=== PATIENT | male | born 1965 | race Caucasian/White ===

== ENCOUNTER 2016-02-26 08:04 | Emergency (ER) | payer OTHER ==
[2016-02-26] MEDS ORDERED: AUGMENTIN 875 MG TAB As Ordered ONE (08:48)
[2016-02-26] MEDS ORDERED: IBUPROFEN 800 MG TAB As Ordered ONE (08:48)
--- NOTE | 2016-02-26 09:01 | EDDOCDS ---
Physician Documentation [facility] Name: Samuel Adams Age: 51 yrs Sex: Male : 1965 Arrival Date: 02/26/2016 Time: 08:04 Bed I5 / M5 Private MD: Michelle Rachel DO Disposition: 02/26/16 08:44 Discharged to Home/Self Care. Impression: Acute serous otitis media, left ear, Acute pharyngitis. - Condition is Stable. - Discharge Instructions: Otitis Media, Adult, Pharyngitis, Gndw-rx-[id number]. - Prescriptions for Augmentin 875- 125 mg Oral Tablet - take 1 tablet by ORAL route every 12 hours for 10 days; 20 tablet. Ibuprofen 800 mg Oral Tablet - take 1 tablet by ORAL route every 8 hours As needed take with food; 30 tablet. - Work Release Form - 2 day, Medication Reconciliation, Local Pharmacy Hours form. - Follow up: Michelle Rachel; When: 1 - 2 days; Reason: Recheck today's complaints, Continuance of care. Follow up: Emergency Department; Reason: Worsening of conditions. - Problem is new. - Symptoms have improved. Historical: - Allergies: no known allergies; - Home Meds: 1. lisinopril 20 mg Oral tab 1 tab once daily 2. omeprazole 20 mg Oral cpDR 1 cap once daily 3. Synthroid 75 mcg Oral tab 1 tab once daily 4. Crestor Unknown Oral once daily 5. aspirin 81 mg Oral tab 1 tab once daily - PMHx: Hypertension; High Cholesterol; GERD; Antonio's Disease; - PSHx: left knee surgery times two; Hernia repair; Vasectomy; - Social history: Smoking status: Patient states was never smoker of tobacco. No barriers to communication noted, The patient speaks fluent Turkish, Speaks appropriately for age. - Family history: Not pertinent. - : The pt / caregiver states he / she is not on anticoagulants. Home medication list is obtained from the patient. - Exposure Risk Screening:: None identified. Vital Signs: 02/25 08:11 BP 116 / 82; Pulse 70; Resp 16; Temp 97.0; Pulse Ox 97% on R/A; Weight 77.11 kg / 170 mlb1 lbs (R); Height 5 ft. 6 in. (167.64 cm) (R); Pain 3/10; 08:11 Body Mass Index 27.44 (77.11 kg, 167.64 cm) mlb1 MDM: 08:35 Strep Screen, Nursing ordered. ef1 08:44 Amoxicillin-Clavulanate 875 mg 1 tabs PO once ordered. ef1 08:44 Ibuprofen 800 mg PO once ordered. ef1 08:46 GATS (NEGATIVE STREP SCREEN) Ordered. EDID 09:00 [facility] Payment Agreement was scanned into [employer] and attached to record. jp5 09:00 Financial registration complete. jp5 Administered Medications: 08:52 Drug: Amoxicillin-Clavulanate 1 tabs [amoxicillin 875 mg-potassium clavulanate 125 mg jc4 tablet (1 tabs)] Route: PO; 08:52 Drug: Ibuprofen 800 mg [ibuprofen 800 mg tablet (1 tabs)] Route: PO; jc4 Signatures: Dispatcher MedHo EDID Clarence Coker RN RN mlb1 Yoon Tran PA-C PAAlbaro ef1 Heidi Eddy RN RN jc4 Ariadne Flanagan jp5 The chart was reviewed and I authenticate all verbal orders and agree with the evaluation and treatment provided.Attachments: 09:00 [facility] Payment Agreement jp5 MTDD
--- NOTE | 2016-02-26 09:01 | EDDOCDS ---
Nurse's Notes [facility] Name: Samuel Adams Age: 51 yrs Sex: Male : 1965 Arrival Date: 02/26/2016 Time: 08:04 Bed I5 / M5 Private MD: Michelle Rachel DO Diagnosis: Acute serous otitis media, left ear;Acute pharyngitis Presentation: 02/25 08:07 Presenting complaint: Patient states: Persistent cough and fever for the past four days mlb1 left ear pain since last night. Adult Sepsis Screening: The patient does not have new or worsening altered mentation. Patient's respiratory rate is less than 22. Systolic blood pressure is greater than 100. Patient has a qSOFA score of 0- Negative Sepsis Screen. Suicide/Homicide risk assessment- the patient denies having any suicidal and/or homicidal ideations and does not present with any other emotional, behavioral or mental health complaints. Status: Patient is not a enterprise services manager or dependent. Transition of care: patient was not received from another setting of care. 08:07 Acuity: SOCRATES Level 4 mlb1 08:07 Method Of Arrival: Walkin/Carried/Asstd mlb1 Triage Assessment: 08:12 General: Appears in no apparent distress, Behavior is appropriate for age, cooperative. mlb1 Pain: Location: left ear Pain currently is 3 out of 10 on a pain scale. Pt Declines HIV testing. Respiratory: Reports cough that is non-productive, persistent. Historical: - Allergies: no known allergies; - Home Meds: 1. lisinopril 20 mg Oral tab 1 tab once daily 2. omeprazole 20 mg Oral cpDR 1 cap once daily 3. Synthroid 75 mcg Oral tab 1 tab once daily 4. Crestor Unknown Oral once daily 5. aspirin 81 mg Oral tab 1 tab once daily - PMHx: Hypertension; High Cholesterol; GERD; Antonio's Disease; - PSHx: left knee surgery times two; Hernia repair; Vasectomy; - Social history: Smoking status: Patient states was never smoker of tobacco. No barriers to communication noted, The patient speaks fluent Venezuelan, Speaks appropriately for age. - Family history: Not pertinent. - : The pt / caregiver states he / she is not on anticoagulants. Home medication list is obtained from the patient. - Exposure Risk Screening:: None identified. Screenin:33 Screening information is obtained from the patient. Fall risk: No risks identified. jc4 Assistance ADL's: requires no assistance with activities of daily living. Abuse/DV Screen: The patient / caregiver reports he/she is: not in a situation that causes fear, pain or injury. Nutritional screening: No deficits noted. Advance Directives: Currently, there is a health care proxy, Ibeth Woodson, . There is no active DNR order. There is a living will, but a copy is not available at this time. There is an active Power of Three Dimensional Art Instructor, Ibteh Woodson, . 08:59 home support is adequate. jc4 Assessment: 08:58 General: Appears uncomfortable. Neurological: Level of Consciousness is awake, alert, jc4 Oriented to person, place, time. EENT: Reports pain in left ear. Respiratory: Airway is patent Respiratory effort is even, unlabored, Respiratory pattern is regular, symmetrical. Derm: Skin is pink, warm & dry. Vital Signs: 08:11 BP 116 / 82; Pulse 70; Resp 16; Temp 97.0; Pulse Ox 97% on R/A; Weight 77.11 kg (R); mlb1 Height 5 ft. 6 in. (167.64 cm) (R); Pain 3/10; 08:11 Body Mass Index 27.44 (77.11 kg, 167.64 cm) [facility] Vitals: 08:11 Log In Time: February 26, 2016 at 08:02. b1 ED Course: 08:05 Patient visited by Faviola Orellana. mm15 08:05 Michelle Rachel is Private Physician. mm15 08:05 Patient moved to Waiting mm15 08:07 Patient visited by Clarence Coker, RN. mlb1 08:09 Triage Initiated mlb1 08:12 Patient visited by Clarence Coker, RN. mlb1 08:12 Heidi Eddy RN is Primary Nurse. mlb1 08:12 Patient moved to I5 / M5 mlb1 08:22 Yoon Tran PA-C is PHCP. ef1 08:22 Odilia Lozano MD is Attending Physician. ef1 08:22 Patient visited by Yoon Tran PA-C. ef1 08:33 The patient / caregiver is instructed regarding the plan of care and ED course. jc4 08:44 Patient visited by Yoon Tran PA-C. ef1 08:44 Michelle Rachel is Referral Physician. ef1 08:47 GATS (NEGATIVE STREP SCREEN) Sent. jc4 08:59 No IV's were initiated during this patient's visit. No procedures done that require jc4 assistance. 09:00 [facility] Payment Agreement was scanned into [employer] and attached to record. jp5 Administered Medications: 08:52 Drug: Amoxicillin-Clavulanate 1 tabs [amoxicillin 875 mg-potassium clavulanate 125 mg jc4 tablet (1 tabs)] Route: PO; 08:52 Drug: Ibuprofen 800 mg [ibuprofen 800 mg tablet (1 tabs)] Route: PO; jc4 Order Results: There are currently no results for this order. Outcome: 08:44 Discharge ordered by Provider. ef1 08:58 Discharge Assessment: Patient awake, alert and oriented x 3. No cognitive and/or jc4 functional deficits noted. Patient verbalized understanding of disposition instructions. patient administered narcotics - no. The following High Risk Discharge criteria are identified: None. Discharged to home ambulatory. Condition: stable. Discharge instructions given to patient, Instructed on discharge instructions, follow up and referral plans. medication usage, Demonstrated understanding of instructions, medications, Pt was receptive of discharge instructions/ teaching. Work note provided to patient. No special radiology studies were completed. Property :Personal belongings accompany Pt. 08:59 Patient left the ED. jc4 Signatures: Clarence Coker RN RN mlb1 Yoon Tran PA-C PA-C ef1 Heidi Eddy RN RN jc4 Faviola Orellana mm15 Ariadne Flanagan jp5 MTDD
--- NOTE | 2016-02-28 10:00 | EDDOCDS ---
Nurse's Notes [facility] Name: Samuel Adams Age: 51 yrs Sex: Male : 1965 Arrival Date: 02/26/2016 Time: 08:04 Bed I5 / M5 Private MD: Michelle Rachel DO Diagnosis: Acute serous otitis media, left ear;Acute pharyngitis Presentation: 02/25 08:07 Presenting complaint: Patient states: Persistent cough and fever for the past four days mlb1 left ear pain since last night. Adult Sepsis Screening: The patient does not have new or worsening altered mentation. Patient's respiratory rate is less than 22. Systolic blood pressure is greater than 100. Patient has a qSOFA score of 0- Negative Sepsis Screen. Suicide/Homicide risk assessment- the patient denies having any suicidal and/or homicidal ideations and does not present with any other emotional, behavioral or mental health complaints. Status: Patient is not a street light servicer helper or dependent. Transition of care: patient was not received from another setting of care. 08:07 Acuity: SOCRATES Level 4 mlb1 08:07 Method Of Arrival: Walkin/Carried/Asstd mlb1 Triage Assessment: 08:12 General: Appears in no apparent distress, Behavior is appropriate for age, cooperative. mlb1 Pain: Location: left ear Pain currently is 3 out of 10 on a pain scale. Pt Declines HIV testing. Respiratory: Reports cough that is non-productive, persistent. Historical: - Allergies: no known allergies; - Home Meds: 1. lisinopril 20 mg Oral tab 1 tab once daily 2. omeprazole 20 mg Oral cpDR 1 cap once daily 3. Synthroid 75 mcg Oral tab 1 tab once daily 4. Crestor Unknown Oral once daily 5. aspirin 81 mg Oral tab 1 tab once daily - PMHx: Hypertension; High Cholesterol; GERD; Antonio's Disease; - PSHx: left knee surgery times two; Hernia repair; Vasectomy; - Social history: Smoking status: Patient states was never smoker of tobacco. No barriers to communication noted, The patient speaks fluent Samoan, Speaks appropriately for age. - Family history: Not pertinent. - : The pt / caregiver states he / she is not on anticoagulants. Home medication list is obtained from the patient. - Exposure Risk Screening:: None identified. Screenin:33 Screening information is obtained from the patient. Fall risk: No risks identified. jc4 Assistance ADL's: requires no assistance with activities of daily living. Abuse/DV Screen: The patient / caregiver reports he/she is: not in a situation that causes fear, pain or injury. Nutritional screening: No deficits noted. Advance Directives: Currently, there is a health care proxy, Ibeth Woodson, . There is no active DNR order. There is a living will, but a copy is not available at this time. There is an active Power of Patient Navigator, Ibeth Woodson, . 08:59 home support is adequate. jc4 Assessment: 08:58 General: Appears uncomfortable. Neurological: Level of Consciousness is awake, alert, jc4 Oriented to person, place, time. EENT: Reports pain in left ear. Respiratory: Airway is patent Respiratory effort is even, unlabored, Respiratory pattern is regular, symmetrical. Derm: Skin is pink, warm & dry. Vital Signs: 08:11 BP 116 / 82; Pulse 70; Resp 16; Temp 97.0; Pulse Ox 97% on R/A; Weight 77.11 kg (R); mlb1 Height 5 ft. 6 in. (167.64 cm) (R); Pain 3/10; 08:11 Body Mass Index 27.44 (77.11 kg, 167.64 cm) [facility] Vitals: 08:11 Log In Time: February 26, 2016 at 08:02. b1 ED Course: 08:05 Patient visited by Faviola Orellana. mm15 08:05 Michelle Rachel is Private Physician. mm15 08:05 Patient moved to Waiting mm15 08:07 Patient visited by Clarence Coker, RN. mlb1 08:09 Triage Initiated mlb1 08:12 Patient visited by Clarence Coker, RN. mlb1 08:12 Heidi Eddy RN is Primary Nurse. mlb1 08:12 Patient moved to I5 / M5 mlb1 08:22 Yoon Tran PA-C is PHCP. ef1 08:22 Odilia Lozano MD is Attending Physician. ef1 08:22 Patient visited by Yoon Tran PA-C. ef1 08:33 The patient / caregiver is instructed regarding the plan of care and ED course. jc4 08:44 Patient visited by Yoon Tran PA-C. ef1 08:44 Michelle Rachel is Referral Physician. ef1 08:47 GATS (NEGATIVE STREP SCREEN) Sent. jc4 08:59 No IV's were initiated during this patient's visit. No procedures done that require jc4 assistance. 09:00 [facility] Payment Agreement was scanned into [employer] and attached to record. jp5 11:23 T-Sheet-- Draft Copy was scanned into [employer] and attached to record. se Administered Medications: 08:52 Drug: Amoxicillin-Clavulanate 1 tabs [amoxicillin 875 mg-potassium clavulanate 125 mg jc4 tablet (1 tabs)] Route: PO; 08:52 Drug: Ibuprofen 800 mg [ibuprofen 800 mg tablet (1 tabs)] Route: PO; jc4 Order Results: Lab Order: GATS (NEGATIVE STREP SCREEN); SPEC'M 02/26/16 08:39 Test: GATS CULTURE (NEG STREP SCR); Value: GATS RESULT NEGATIVE FOR STREP PYOGENES (GROUP A); Status: F Outcome: 08:44 Discharge ordered by Provider. ef1 08:58 Discharge Assessment: Patient awake, alert and oriented x 3. No cognitive and/or jc4 functional deficits noted. Patient verbalized understanding of disposition instructions. patient administered narcotics - no. The following High Risk Discharge criteria are identified: None. Discharged to home ambulatory. Condition: stable. Discharge instructions given to patient, Instructed on discharge instructions, follow up and referral plans. medication usage, Demonstrated understanding of instructions, medications, Pt was receptive of discharge instructions/ teaching. Work note provided to patient. No special radiology studies were completed. Property :Personal belongings accompany Pt. 08:59 Patient left the ED. jc4 Signatures: Clarence Coker RN RN mlb1 Yoon Tran PA-C PA-C ef1 Heidi Eddy RN RN jc4 Faviola Orellana mm15 Ariadne Flanagan 5 Odilia Vu Chart Complete MTDD
--- NOTE | 2016-02-28 10:00 | EDDOCDS ---
Physician Documentation [facility] Name: Samuel Adams Age: 51 yrs Sex: Male : 1965 Arrival Date: 02/26/2016 Time: 08:04 Bed I5 / M5 Private MD: Michelle Rachel DO Disposition: 02/26/16 08:44 Discharged to Home/Self Care. Impression: Acute serous otitis media, left ear, Acute pharyngitis. - Condition is Stable. - Discharge Instructions: Otitis Media, Adult, Pharyngitis, Vmoi-kb-Axlo. - Prescriptions for Augmentin 875- 125 mg Oral Tablet - take 1 tablet by ORAL route every 12 hours for 10 days; 20 tablet. Ibuprofen 800 mg Oral Tablet - take 1 tablet by ORAL route every 8 hours As needed take with food; 30 tablet. - Work Release Form - 2 day, Medication Reconciliation, Local Pharmacy Hours form. - Follow up: Michelle Rachel; When: 1 - 2 days; Reason: Recheck today's complaints, Continuance of care. Follow up: Emergency Department; Reason: Worsening of conditions. - Problem is new. - Symptoms have improved. Historical: - Allergies: no known allergies; - Home Meds: 1. lisinopril 20 mg Oral tab 1 tab once daily 2. omeprazole 20 mg Oral cpDR 1 cap once daily 3. Synthroid 75 mcg Oral tab 1 tab once daily 4. Crestor Unknown Oral once daily 5. aspirin 81 mg Oral tab 1 tab once daily - PMHx: Hypertension; High Cholesterol; GERD; Antonio's Disease; - PSHx: left knee surgery times two; Hernia repair; Vasectomy; - Social history: Smoking status: Patient states was never smoker of tobacco. No barriers to communication noted, The patient speaks fluent Greek, Speaks appropriately for age. - Family history: Not pertinent. - : The pt / caregiver states he / she is not on anticoagulants. Home medication list is obtained from the patient. - Exposure Risk Screening:: None identified. Vital Signs: 02/25 08:11 BP 116 / 82; Pulse 70; Resp 16; Temp 97.0; Pulse Ox 97% on R/A; Weight 77.11 kg / 170 mlb1 lbs (R); Height 5 ft. 6 in. (167.64 cm) (R); Pain 05/04; 08:11 Body Mass Index 27.44 (77.11 kg, 167.64 cm) mlb1 MDM: 08:35 Strep Screen, Nursing ordered. ef1 08:44 Amoxicillin-Clavulanate 875 mg 1 tabs PO once ordered. ef1 08:44 Ibuprofen 800 mg PO once ordered. ef1 08:46 GATS (NEGATIVE STREP SCREEN) Ordered. EDOK 09:00 [facility] Payment Agreement was scanned into [employer] and attached to record. [facility] 09:00 Financial registration complete. 5 11:23 T-Sheet-- Draft Copy was scanned into [employer] and attached to record. se Administered Medications: 08:52 Drug: Amoxicillin-Clavulanate 1 tabs [amoxicillin 875 mg-potassium clavulanate 125 mg jc4 tablet (1 tabs)] Route: PO; 08:52 Drug: Ibuprofen 800 mg [ibuprofen 800 mg tablet (1 tabs)] Route: PO; jc4 Signatures: Dispatcher [facility] Clarence Coker RN RN mlb1 Yoon Tran, PA-C PA-C ef1 Heidi Eddy RN RN jc4 Ariadne Flanagan jp5 Odilia Vu The chart was reviewed and I authenticate all verbal orders and agree with the evaluation and treatment provided.Attachments: :00 [facility] Payment Agreement jp5 :23 T-Sheet-- Draft Copy [facility] Chart Complete MTDD
--- NOTE | 2016-02-28 10:00 | EDDOCDS ---
Physician Documentation [facility] Name: Samuel Adams Age: 51 yrs Sex: Male : 1965 Arrival Date: 02/26/2016 Time: 08:04 Bed I5 / M5 Private MD: Michelle Rachel DO Disposition: 02/26/16 08:44 Discharged to Home/Self Care. Impression: Acute serous otitis media, left ear, Acute pharyngitis. - Condition is Stable. - Discharge Instructions: Otitis Media, Adult, Pharyngitis, Vomg-bj-Qmti. - Prescriptions for Augmentin 875- 125 mg Oral Tablet - take 1 tablet by ORAL route every 12 hours for 10 days; 20 tablet. Ibuprofen 800 mg Oral Tablet - take 1 tablet by ORAL route every 8 hours As needed take with food; 30 tablet. - Work Release Form - 2 day, Medication Reconciliation, Local Pharmacy Hours form. - Follow up: Michelle Rachel; When: 1 - 2 days; Reason: Recheck today's complaints, Continuance of care. Follow up: Emergency Department; Reason: Worsening of conditions. - Problem is new. - Symptoms have improved. Historical: - Allergies: no known allergies; - Home Meds: 1. lisinopril 20 mg Oral tab 1 tab once daily 2. omeprazole 20 mg Oral cpDR 1 cap once daily 3. Synthroid 75 mcg Oral tab 1 tab once daily 4. Crestor Unknown Oral once daily 5. aspirin 81 mg Oral tab 1 tab once daily - PMHx: Hypertension; High Cholesterol; GERD; Antonio's Disease; - PSHx: left knee surgery times two; Hernia repair; Vasectomy; - Social history: Smoking status: Patient states was never smoker of tobacco. No barriers to communication noted, The patient speaks fluent Romanian, Speaks appropriately for age. - Family history: Not pertinent. - : The pt / caregiver states he / she is not on anticoagulants. Home medication list is obtained from the patient. - Exposure Risk Screening:: None identified. Vital Signs: 02/25 08:11 BP 116 / 82; Pulse 70; Resp 16; Temp 97.0; Pulse Ox 97% on R/A; Weight 77.11 kg / 170 mlb1 lbs (R); Height 5 ft. 6 in. (167.64 cm) (R); Pain 05/04; 08:11 Body Mass Index 27.44 (77.11 kg, 167.64 cm) mlb1 MDM: 08:35 Strep Screen, Nursing ordered. ef1 08:44 Amoxicillin-Clavulanate 875 mg 1 tabs PO once ordered. ef1 08:44 Ibuprofen 800 mg PO once ordered. ef1 08:46 GATS (NEGATIVE STREP SCREEN) Ordered. EDMT 09:00 [facility] Payment Agreement was scanned into [employer] and attached to record. [facility] 09:00 Financial registration complete. 5 11:23 T-Sheet-- Draft Copy was scanned into [employer] and attached to record. se Administered Medications: 08:52 Drug: Amoxicillin-Clavulanate 1 tabs [amoxicillin 875 mg-potassium clavulanate 125 mg jc4 tablet (1 tabs)] Route: PO; 08:52 Drug: Ibuprofen 800 mg [ibuprofen 800 mg tablet (1 tabs)] Route: PO; jc4 Signatures: Dispatcher [facility] Clarence Coker RN RN mlb1 Yoon Tran, PA-C PA-C ef1 Heidi Eddy RN RN jc4 Ariadne Flanagan jp5 Odilia Vu The chart was reviewed and I authenticate all verbal orders and agree with the evaluation and treatment provided.Attachments: :00 [facility] Payment Agreement jp5 :23 T-Sheet-- Draft Copy [facility] Chart Complete MTDD
== END 2016-02-26 08:59 | disposition home or self-care (01) ==
LOC: M ED 08:04
DX: H66.92 Otitis media, unspecified, left ear (principal); J02.9 Acute pharyngitis, unspecified; I10 Essential (primary) hypertension; E78.00 Pure hypercholesterolemia, unspecified; K21.9 Gastro-esophageal reflux disease without esophagitis; E06.3 Autoimmune thyroiditis; Z79.82 Long term (current) use of aspirin; Z79.899 Other long term (current) drug therapy

== ENCOUNTER → 2016-02-28 | Outpatient (REF) | payer OTHER | END | disposition home or self-care (01) | LOC: M LAB REF 17:40 | PROVIDERS: ATTEND Physician Assistant | DX: Z53.8 Procedure and treatment not carried out for other reasons (principal); R05 Cough ==

== ENCOUNTER 2016-03-07 00:54 | Emergency (ER) | payer OTHER ==
[2016-03-07] MEDS ORDERED: methylPREDNISolone INJ 125 MG/2 ML VIAL (J2930) As Ordered ONE (01:49)
[2016-03-07] MEDS ORDERED: ALBUTEROL SULFATE 2.5 MG/0.5 ML INH NEB SOLN As Ordered ONE (01:53)
[2016-03-07 01:54] LABS: BASO % 0.3 % (0.0-1.0); EOS # 0.3 K/mm3 (0.0-0.50); EOS % 4.2 % (0.0-3.0); LARGE UNSTAINED CELL # 0.2 K/mm3 (0.0-0.4); LARGE UNSTAINED CELL % 2.9 % (0.0-4.0); LYMPH % 24.3 % (24.0-44.0); MEAN CORPUSCULAR HGB CONC 35.9 g/dl (32.0-36.5); MEAN CORPUSCULAR VOLUME 83.7 fl (80.0-96.0); MONO # 0.5 K/mm3 (0.0-0.8); MONO % 5.9 % (0.0-5.0); NEUTROPHILS % 62.4 % (36.0-66.0); PLATELET COUNT, AUTOMATED 260 k/mm3 (150-450); RED CELL DISTRIBUTION WIDTH 12.1 % (11.5-14.5); WHITE BLOOD COUNT 8.1 K/mm3 (4.0-10.0)
[2016-03-07 02:13] LABS: ANION GAP 6 MEQ/L (8-16); BLOOD UREA NITROGEN 18 MG/DL (7-18); CALCIUM LEVEL 8.6 MG/DL (8.5-10.1); CARBON DIOXIDE LEVEL 29 MEQ/L (21-32); CHLORIDE LEVEL 103 MEQ/L (98-107); CREATININE FOR GFR 1.33 MG/DL (0.70-1.30); GLOMERULAR FILTRATION RATE > 60.0 (>56); GLUCOSE, FASTING 106 MG/DL (70-105); POTASSIUM SERUM 4.1 MEQ/L (3.5-5.1); SODIUM LEVEL 138 MEQ/L (136-145)
[2016-03-07] MEDS ORDERED: ALBUTEROL 90 MCG/ACT 8GM HFA INHALER As Ordered ONE (02:22)
--- NOTE | 2016-03-07 02:31 | EDDOCDS ---
Nurse's Notes [facility] Name: Samuel Adams Age: 51 yrs Sex: Male : 1965 Arrival Date: 03/07/2016 Time: 00:54 Bed PD Private MD: Diagnosis: Acute upper respiratory infection, unspecified;Otitis media, unspecified, left ear;Cough Presentation: 03/07 01:04 Presenting complaint: Patient states: cough, persistent, non-productive; fever; sweats; af2 chills; earaches-left; sore throat; chest congestion, heavy. since 02/24/16. Adult Sepsis Screening: The patient does not have new or worsening altered mentation. Patient's respiratory rate is less than 22. Systolic blood pressure is greater than 100. Patient has a qSOFA score of 0- Negative Sepsis Screen. Suicide/Homicide risk assessment- the patient denies having any suicidal and/or homicidal ideations and does not present with any other emotional, behavioral or mental health complaints. Status: Patient is not a dining services director or dependent. Transition of care: patient was not received from another setting of care. 01:04 Acuity: SOCRATES Level 3 af2 01:04 Method Of Arrival: Walkin/Carried/Asstd af2 Triage Assessment: 01:06 General: Appears ill, Behavior is cooperative. Pain: Denies pain. HIV screening NA for af2 this visit Offered previously. Respiratory: Airway is patent Respiratory effort is even, unlabored, Reports cough that is non-productive, persistent. Derm: Skin is pale. Historical: - Allergies: No known drug Allergies; - Home Meds: 1. aspirin 81 mg Oral tab 1 tab once daily 2. Synthroid 75 mcg Oral tab 1 tab once daily 3. omeprazole 20 mg Oral cpDR 1 cap once daily 4. lisinopril 20 mg Oral tab 1 tab once daily 5. Crestor Oral once daily 6. Tussionex Pennkinetic ER 10-8 mg/5 mL Oral su12 5 mL every 12 hours 7. amoxicillin 500 mg Oral tab 1 tab every 12 hours - PMHx: GERD; Antonio's Disease; High Cholesterol; Hypertension; - PSHx: Hernia repair; Vasectomy; left knee surgery times two; - Social history: Smoking status: Patient states former smoker of tobacco. No barriers to communication noted, The patient speaks fluent Gabonese. - Family history: Not pertinent. - : The pt / caregiver states he / she is not on anticoagulants. Home medication list is obtained from the patient. - Exposure Risk Screening:: None identified. Screenin:57 Screening information is obtained from the patient. Fall risk: No risks identified. [facility] Assistance ADL's: requires no assistance with activities of daily living. Abuse/DV Screen: The patient / caregiver reports he/she is: not in a situation that causes fear, pain or injury. Nutritional screening: No deficits noted. Advance Directives: Currently, there is a health care proxy, ibeth rizvi, . There is no active DNR order. There is a living will, There is an active Power of Anger Control Counselor, ibeth rizvi, . home support is adequate. Assessment: :57 General: Appears in no apparent distress, comfortable, Behavior is appropriate for age, cjh cooperative. Pain: Denies pain. Neurological: Level of Consciousness is awake, alert, Oriented to person, place, time. Respiratory: Airway is patent Respiratory effort is even, unlabored, Respiratory pattern is regular, symmetrical, Breath sounds are coarse in left posterior lower lobe. Respiratory: Reports cough that is non-productive, persistent since 2 weeks. Derm: Skin is pink, warm & dry. 02:28 General: patient states feeling a little better, reviewed discharge instructions, [facility] denies further needs. Vital Signs: 01:01 BP 100 / 80 RA; Pulse 88; Resp 18 S; Temp 97.8(O); Pulse Ox 96% on R/A; Weight 79.38 kg af2 (R); Height 5 ft. 6 in. (167.64 cm) (R); Pain 0/10; 01:01 Body Mass Index 28.25 (79.38 kg, 167.64 cm) af2 Vitals: 01:01 Log In Time: March 07, 2016 at 00:51. af2 ED Course: 00:55 Patient visited by Stephania Avila. gjb 00:55 Patient moved to Waiting gjb 01:05 Triage Initiated af2 01:06 Patient visited by Adriana Guan RN. af2 01:07 Patient moved to PD af2 01:16 Daphne Alvarado PA-C is PHCP. dt4 01:16 Lorrie Beebe MD is Attending Physician. dt4 01:16 Patient visited by Daphne Alvarado PA-C. dt4 01:47 Basic Metabolic Profile Sent. [facility] 01:47 CBC with Diff Sent. [facility] 01:57 The patient / caregiver is instructed regarding the plan of care and ED course. Patient [facility] has correct armband on for positive identification. Bed in low position. Call light in reach. Cardiac monitoring not applicable on this patient. 01:57 Inserted saline lock: 20 gauge in left antecubital area and blood collected. The [facility] patient tolerated the procedure well. Labs drawn. (by ED staff). Sent per order to lab. 02:00 Patient visited by Ibeth Rizvi RN. [facility] 02:28 Discontinued lock intact, bleeding controlled, pressure dressing applied, No [facility] redness/swelling at site. No procedures done that require assistance. Administered Medications: 01:32 CANCELLED (Other Intervention Used): methylPREDNISolone Sodium Succinate 125 mg IM once dt4 01:55 Drug: Solu-MEDROL 125 mg [Solu-Medrol 500 mg intravenous solution (125 mg)] Route: IVP; [facility] Site: left antecubital; 02:30 Follow up: Response: No Adverse Reaction [facility] 01:56 Drug: Albuterol 2.5 mg [albuterol sulfate 2.5 mg/0.5 mL solution for nebulization (0.5 jh6 mL)] Route: Nebulizer; 02:29 Drug: Ventolin 2 puffs [Ventolin HFA 90 mcg/actuation aerosol inhaler (2 puffs)] Route: [facility] Inhalation; 02:30 Follow up: Response: Med's dispensed home [facility] RT: 01:56 Initial Med Neb Given as ordered Patient was instructed and evaluated on procedure jh6 Patient tolerated procedure well without adverse effect. Respiratory: Airway is patent Respiratory effort is even, unlabored, Respiratory pattern is regular symmetrical, Breath sounds are clear in right upper lobe, left upper lobe, right middle lobe, left lower lobe and right lower lobe. 02:04 Respiratory: Airway is patent Respiratory effort is even, unlabored, Respiratory jh6 pattern is regular symmetrical, Breath sounds are clear in right upper lobe, left upper lobe, right middle lobe, left lower lobe and right lower lobe. Order Results: Lab Order: CBC with Diff; SPEC'M 03/07/16 01:44 Test: WHITE BLOOD COUNT; Value: 8.1; Range: 4.0-10.0; Units: K/mm3; Status: F Test: RED BLOOD COUNT; Value: 5.27; Range: 4.30-6.10; Units: M/mm3; Status: F Test: HEMOGLOBIN; Value: 15.8; Range: 14.0-18.0; Units: g/dl; Status: F Test: HEMATOCRIT; Value: 44.1; Range: 42.0-52.0; Units: %; Status: F Test: MEAN CORPUSCULAR VOLUME; Value: 83.7; Range: 80.0-96.0; Units: fl; Status: F Test: MEAN CORPUSCULAR HEMOGLOBIN; Value: 30.0; Range: 27.0-33.0; Units: pg; Status: F Test: MEAN CORPUSCULAR HGB CONC; Value: 35.9; Range: 32.0-36.5; Units: g/dl; Status: F Test: RED CELL DISTRIBUTION WIDTH; Value: 12.1; Range: 11.5-14.5; Units: %; Status: F Test: PLATELET COUNT, AUTOMATED; Value: 260; Range: 150-450; Units: k/mm3; Status: F Test: NEUTROPHILS %; Value: 62.4; Range: 36.0-66.0; Units: %; Status: F Test: LYMPH %; Value: 24.3; Range: 24.0-44.0; Units: %; Status: F Test: MONO %; Value: 5.9; Range: 0.0-5.0; Abnormal: Above high normal; Units: %; Status: F Test: EOS %; Value: 4.2; Range: 0.0-3.0; Abnormal: Above high normal; Units: %; Status: F Test: BASO %; Value: 0.3; Range: 0.0-1.0; Units: %; Status: F Test: LARGE UNSTAINED CELL %; Value: 2.9; Range: 0.0-4.0; Units: %; Status: F Test: NEUTROPHILS #; Value: 5.0; Range: 1.8-7.7; Units: K/mm3; Status: F Test: LYMPH #; Value: 2.0; Range: 1.5-4.5; Units: K/mm3; Status: F Test: MONO #; Value: 0.5; Range: 0.0-0.8; Units: K/mm3; Status: F Test: EOS #; Value: 0.3; Range: 0.0-0.50; Units: K/mm3; Status: F Test: BASO #; Value: 0.0; Range: 0.0-0.2; Units: K/mm3; Status: F Test: LARGE UNSTAINED CELL #; Value: 0.2; Range: 0.0-0.4; Units: K/mm3; Status: F Lab Order: Basic Metabolic Profile; [facility] 03/07/16 01:44 Test: GLUCOSE, FASTING; Value: 106; Range: 70-105; Abnormal: Above high normal; Units: MG/DL; Status: F Test: BLOOD UREA NITROGEN; Value: 18; Range: 7-18; Units: MG/DL; Status: F Test: CREATININE FOR GFR; Value: 1.33; Range: 0.70-1.30; Abnormal: Above high normal; Units: MG/DL; Status: F Test: GLOMERULAR FILTRATION RATE; Value: > 60.0; Range: >56; Status: F Test: SODIUM LEVEL; Value: 138; Range: 136-145; Units: MEQ/L; Status: F Test: POTASSIUM SERUM; Value: 4.1; Range: 3.5-5.1; Units: MEQ/L; Status: F Test: CHLORIDE LEVEL; Value: 103; Range: 98-107; Units: MEQ/L; Status: F Test: CARBON DIOXIDE LEVEL; Value: 29; Range: 21-32; Units: MEQ/L; Status: F Test: ANION GAP; Value: 6; Range: 8-16; Abnormal: Below low normal; Units: MEQ/L; Status: F Test: CALCIUM LEVEL; Value: 8.6; Range: 8.5-10.1; Units: MG/DL; Status: F Test Note: ; Units are mL/min/1.73 m2 Chronic Kidney Disease Staging per NKF: Stage I & II GFR >=60 Normal to Mildly Decreased Stage III GFR 30-59 Moderately Decreased Stage IV GFR 15-29 Severely Decreased Stage V GFR <15 Very Little GFR Left ESRD GFR <15 on TEACHING FELLOW Outcome: 01:57 No special radiology studies were completed. Property :Personal belongings accompany Pt.[facility] 02:20 Discharge ordered by Provider. count includes the [facility] 02:28 Discharge Assessment: Patient awake, alert and oriented x 3. No cognitive and/or [facility] functional deficits noted. Patient verbalized understanding of disposition instructions. patient administered narcotics - no. The following High Risk Discharge criteria are identified: None. Discharged to home ambulatory. Condition: good Condition: stable Condition: improved. Discharge instructions given to patient, Instructed on discharge instructions, follow up and referral plans. medication usage, Demonstrated understanding of instructions, medications, Pt was receptive of discharge instructions/ teaching. Prescriptions given X 1, Work note provided to patient. 02:30 Patient left the ED. [facility] Signatures: James Aguilar jh6 Ibeth Rizvi,RN RN [facility] Daphne Alvarado, PAAnnabelC PA-C dt4 Adriana Guan,RN RN 2 Stephania Avila MTDVirginia
--- NOTE | 2016-03-07 02:31 | EDDOCDS ---
Physician Documentation [facility] Name: Samuel Adams Age: 51 yrs Sex: Male : 1965 Arrival Date: 03/07/2016 Time: 00:54 Bed PD Private MD: Disposition: 03/07/16 02:20 Discharged to Home/Self Care. Impression: Acute upper respiratory infection, unspecified, Otitis media, unspecified, left ear, Cough. - Condition is Stable. - Discharge Instructions: Upper Respiratory Infection, Adult, Cough, Adult. - Prescriptions for Levaquin 750 mg Oral Tablet - take 1 tablet by ORAL route once daily for 5 days; 5 tablet. - Medication Reconciliation, Work Release Form - 2 day, Local Pharmacy Hours form. - Follow up: Emergency Department; When: As needed; Reason: Worsening of conditions. Follow up: Private Physician; When: 2 - 3 days; Reason: Wound/Symptom Recheck, Recheck today's complaints, Continuance of care. - Problem is new. - Symptoms have improved. Historical: - Allergies: No known drug Allergies; - Home Meds: 1. aspirin 81 mg Oral tab 1 tab once daily 2. Synthroid 75 mcg Oral tab 1 tab once daily 3. omeprazole 20 mg Oral cpDR 1 cap once daily 4. lisinopril 20 mg Oral tab 1 tab once daily 5. Crestor Oral once daily 6. Tussionex Pennkinetic ER 10-8 mg/5 mL Oral su12 5 mL every 12 hours 7. amoxicillin 500 mg Oral tab 1 tab every 12 hours - PMHx: GERD; Antonio's Disease; High Cholesterol; Hypertension; - PSHx: Hernia repair; Vasectomy; left knee surgery times two; - Social history: Smoking status: Patient states former smoker of tobacco. No barriers to communication noted, The patient speaks fluent Urdu. - Family history: Not pertinent. - : The pt / caregiver states he / she is not on anticoagulants. Home medication list is obtained from the patient. - Exposure Risk Screening:: None identified. Vital Signs: 03/07 01:01 BP 100 / 80 RA; Pulse 88; Resp 18 S; Temp 97.8(O); Pulse Ox 96% on R/A; Weight 79.38 kg af2 / 175 lbs (R); Height 5 ft. 6 in. (167.64 cm) (R); Pain 0/10; 01:01 Body Mass Index 28.25 (79.38 kg, 167.64 cm) af2 MDM: 01:26 Albuterol 2.5 mg Nebulizer once ordered. dt4 01:26 Call Respiratory ordered. dt4 01:26 Chest, 2 View (pa\E\lat) Ordered. EDMS 01:31 Call Respiratory complete. cjh 01:33 IV Saline Lock ordered. dt4 01:33 Solu-MEDROL 125 mg IVP once ordered. dt4 01:33 CBC with Diff Ordered. EDMS 01:33 Basic Metabolic Profile Ordered. EDMS 02:20 Ventolin Inhaler 2 puffs Inhalation once; GIVE TO PT TO TAKE HOME, THANK YOU. ordered. dt4 Administered Medications: 01:32 CANCELLED (Other Intervention Used): methylPREDNISolone Sodium Succinate 125 mg IM once dt4 01:55 Drug: Solu-MEDROL 125 mg [Solu-Medrol 500 mg intravenous solution (125 mg)] Route: IVP; [facility] Site: left antecubital; 02:30 Follow up: Response: No Adverse Reaction [facility] 01:56 Drug: Albuterol 2.5 mg [albuterol sulfate 2.5 mg/0.5 mL solution for nebulization (0.5 jh6 mL)] Route: Nebulizer; 02:29 Drug: Ventolin 2 puffs [Ventolin HFA 90 mcg/actuation aerosol inhaler (2 puffs)] Route: [facility] Inhalation; 02:30 Follow up: Response: Med's dispensed home [facility] Signatures: Dispatcher [employer] Ibeth Woods RN RN [facility] Daphne Alvarado PA-C PAAnnabelC dt4 Adriana GuanRN RN af2 James Aguilar 6 The chart was reviewed and I authenticate all verbal orders and agree with the evaluation and treatment provided.Corrections: (The following items were deleted from the chart) 01:32 01:26 methylPREDNISolone Sodium Succinate 125 mg IM once ordered. dt4 dt4 MTDD
--- NOTE | 2016-03-07 08:07 | REP ---
Clinical: Cough . Comparison: 09/30/2014 . Technique: PA and lateral. Findings: The mediastinum and cardiac silhouette are normal. The lung paige are clear and without acute consolidation, effusion, or pneumothorax. The skeletal structures are intact and normal. Impression: 1. No acute cardiopulmonary process. Signed by Connor Díaz MD 03/07/2016 07:58 A
--- NOTE | 2016-03-09 03:31 | EDDOCDS ---
Physician Documentation [facility] Name: Samuel Adams Age: 51 yrs Sex: Male : 1965 Arrival Date: 03/07/2016 Time: 00:54 Bed PD Private MD: Disposition: 03/07/16 02:20 Discharged to Home/Self Care. Impression: Acute upper respiratory infection, unspecified, Otitis media, unspecified, left ear, Cough. - Condition is Stable. - Discharge Instructions: Upper Respiratory Infection, Adult, Cough, Adult. - Prescriptions for Levaquin 750 mg Oral Tablet - take 1 tablet by ORAL route once daily for 5 days; 5 tablet. - Medication Reconciliation, Work Release Form - 2 day, Local Pharmacy Hours form. - Follow up: Emergency Department; When: As needed; Reason: Worsening of conditions. Follow up: Private Physician; When: 2 - 3 days; Reason: Wound/Symptom Recheck, Recheck today's complaints, Continuance of care. - Problem is new. - Symptoms have improved. Historical: - Allergies: No known drug Allergies; - Home Meds: 1. aspirin 81 mg Oral tab 1 tab once daily 2. Synthroid 75 mcg Oral tab 1 tab once daily 3. omeprazole 20 mg Oral cpDR 1 cap once daily 4. lisinopril 20 mg Oral tab 1 tab once daily 5. Crestor Oral once daily 6. Tussionex Pennkinetic ER 10-8 mg/5 mL Oral su12 5 mL every 12 hours 7. amoxicillin 500 mg Oral tab 1 tab every 12 hours - PMHx: GERD; Antonio's Disease; High Cholesterol; Hypertension; - PSHx: Hernia repair; Vasectomy; left knee surgery times two; - Social history: Smoking status: Patient states former smoker of tobacco. No barriers to communication noted, The patient speaks fluent Hebrew. - Family history: Not pertinent. - : The pt / caregiver states he / she is not on anticoagulants. Home medication list is obtained from the patient. - Exposure Risk Screening:: None identified. Vital Signs: 03/07 01:01 BP 100 / 80 RA; Pulse 88; Resp 18 S; Temp 97.8(O); Pulse Ox 96% on R/A; Weight 79.38 kg af2 / 175 lbs (R); Height 5 ft. 6 in. (167.64 cm) (R); Pain 0/10; 01:01 Body Mass Index 28.25 (79.38 kg, 167.64 cm) af2 MDM: 01:26 Albuterol 2.5 mg Nebulizer once ordered. dt4 01:26 Call Respiratory ordered. dt4 01:26 Chest, 2 View (pa\E\lat) Ordered. EDMS 01:31 Call Respiratory complete. cjh 01:33 IV Saline Lock ordered. dt4 01:33 Solu-MEDROL 125 mg IVP once ordered. dt4 01:33 CBC with Diff Ordered. EDMS 01:33 Basic Metabolic Profile Ordered. EDMS 02:20 Ventolin Inhaler 2 puffs Inhalation once; GIVE TO PT TO TAKE HOME, THANK YOU. ordered. dt4 13:41 T-Sheet-- Draft Copy was scanned into [employer] and attached to record. gb Administered Medications: 01:32 CANCELLED (Other Intervention Used): methylPREDNISolone Sodium Succinate 125 mg IM once dt4 01:55 Drug: Solu-MEDROL 125 mg [Solu-Medrol 500 mg intravenous solution (125 mg)] Route: IVP; [facility] Site: left antecubital; 02:30 Follow up: Response: No Adverse Reaction [facility] 01:56 Drug: Albuterol 2.5 mg [albuterol sulfate 2.5 mg/0.5 mL solution for nebulization (0.5 jh6 mL)] Route: Nebulizer; 02:29 Drug: Ventolin 2 puffs [Ventolin HFA 90 mcg/actuation aerosol inhaler (2 puffs)] Route: [facility] Inhalation; 02:30 Follow up: Response: Med's dispensed home [facility] Signatures: Dispatcher [employer] EDMO Martina Henriquez, Reg Reg gb Ibeth Woodson RN RN [facility] Daphne Alvarado, PA-C PA-C dt4 Adriana Guan RN RN 2 James Aguilar 6 The chart was reviewed and I authenticate all verbal orders and agree with the evaluation and treatment provided.Corrections: (The following items were deleted from the chart) 01:32 01:26 methylPREDNISolone Sodium Succinate 125 mg IM once ordered. dt4 dt4 Attachments: 13:41 T-Sheet-- Draft Copy gb Chart Complete MTDD
--- NOTE | 2016-03-09 03:31 | EDDOCDS ---
Physician Documentation [facility] Name: Samuel Adams Age: 51 yrs Sex: Male : 1965 Arrival Date: 03/07/2016 Time: 00:54 Bed PD Private MD: Disposition: 03/07/16 02:20 Discharged to Home/Self Care. Impression: Acute upper respiratory infection, unspecified, Otitis media, unspecified, left ear, Cough. - Condition is Stable. - Discharge Instructions: Upper Respiratory Infection, Adult, Cough, Adult. - Prescriptions for Levaquin 750 mg Oral Tablet - take 1 tablet by ORAL route once daily for 5 days; 5 tablet. - Medication Reconciliation, Work Release Form - 2 day, Local Pharmacy Hours form. - Follow up: Emergency Department; When: As needed; Reason: Worsening of conditions. Follow up: Private Physician; When: 2 - 3 days; Reason: Wound/Symptom Recheck, Recheck today's complaints, Continuance of care. - Problem is new. - Symptoms have improved. Historical: - Allergies: No known drug Allergies; - Home Meds: 1. aspirin 81 mg Oral tab 1 tab once daily 2. Synthroid 75 mcg Oral tab 1 tab once daily 3. omeprazole 20 mg Oral cpDR 1 cap once daily 4. lisinopril 20 mg Oral tab 1 tab once daily 5. Crestor Oral once daily 6. Tussionex Pennkinetic ER 10-8 mg/5 mL Oral su12 5 mL every 12 hours 7. amoxicillin 500 mg Oral tab 1 tab every 12 hours - PMHx: GERD; Antonio's Disease; High Cholesterol; Hypertension; - PSHx: Hernia repair; Vasectomy; left knee surgery times two; - Social history: Smoking status: Patient states former smoker of tobacco. No barriers to communication noted, The patient speaks fluent Turkish. - Family history: Not pertinent. - : The pt / caregiver states he / she is not on anticoagulants. Home medication list is obtained from the patient. - Exposure Risk Screening:: None identified. Vital Signs: 03/07 01:01 BP 100 / 80 RA; Pulse 88; Resp 18 S; Temp 97.8(O); Pulse Ox 96% on R/A; Weight 79.38 kg af2 / 175 lbs (R); Height 5 ft. 6 in. (167.64 cm) (R); Pain 0/10; 01:01 Body Mass Index 28.25 (79.38 kg, 167.64 cm) af2 MDM: 01:26 Albuterol 2.5 mg Nebulizer once ordered. dt4 01:26 Call Respiratory ordered. dt4 01:26 Chest, 2 View (pa\E\lat) Ordered. EDMS 01:31 Call Respiratory complete. cjh 01:33 IV Saline Lock ordered. dt4 01:33 Solu-MEDROL 125 mg IVP once ordered. dt4 01:33 CBC with Diff Ordered. EDMS 01:33 Basic Metabolic Profile Ordered. EDMS 02:20 Ventolin Inhaler 2 puffs Inhalation once; GIVE TO PT TO TAKE HOME, THANK YOU. ordered. dt4 13:41 T-Sheet-- Draft Copy was scanned into [employer] and attached to record. gb Administered Medications: 01:32 CANCELLED (Other Intervention Used): methylPREDNISolone Sodium Succinate 125 mg IM once dt4 01:55 Drug: Solu-MEDROL 125 mg [Solu-Medrol 500 mg intravenous solution (125 mg)] Route: IVP; [facility] Site: left antecubital; 02:30 Follow up: Response: No Adverse Reaction [facility] 01:56 Drug: Albuterol 2.5 mg [albuterol sulfate 2.5 mg/0.5 mL solution for nebulization (0.5 jh6 mL)] Route: Nebulizer; 02:29 Drug: Ventolin 2 puffs [Ventolin HFA 90 mcg/actuation aerosol inhaler (2 puffs)] Route: [facility] Inhalation; 02:30 Follow up: Response: Med's dispensed home [facility] Signatures: Dispatcher [employer] EDOH Martina Henriquez, Reg Reg gb Ibeth Woodson RN RN [facility] Daphne Alvarado, PA-C PA-C dt4 Adriana Guan RN RN 2 James Aguilar 6 The chart was reviewed and I authenticate all verbal orders and agree with the evaluation and treatment provided.Corrections: (The following items were deleted from the chart) 01:32 01:26 methylPREDNISolone Sodium Succinate 125 mg IM once ordered. dt4 dt4 Attachments: 13:41 T-Sheet-- Draft Copy gb Chart Complete MTDD
--- NOTE | 2016-03-09 03:31 | EDDOCDS ---
Nurse's Notes [facility] Name: Samuel Adams Age: 51 yrs Sex: Male : 1965 Arrival Date: 03/07/2016 Time: 00:54 Bed PD Private MD: Diagnosis: Acute upper respiratory infection, unspecified;Otitis media, unspecified, left ear;Cough Presentation: 03/07 01:04 Presenting complaint: Patient states: cough, persistent, non-productive; fever; sweats; af2 chills; earaches-left; sore throat; chest congestion, heavy. since 02/24/16. Adult Sepsis Screening: The patient does not have new or worsening altered mentation. Patient's respiratory rate is less than 22. Systolic blood pressure is greater than 100. Patient has a qSOFA score of 0- Negative Sepsis Screen. Suicide/Homicide risk assessment- the patient denies having any suicidal and/or homicidal ideations and does not present with any other emotional, behavioral or mental health complaints. Status: Patient is not a dental service chief or dependent. Transition of care: patient was not received from another setting of care. 01:04 Acuity: SOCRATES Level 3 af2 01:04 Method Of Arrival: Walkin/Carried/Asstd af2 Triage Assessment: 01:06 General: Appears ill, Behavior is cooperative. Pain: Denies pain. HIV screening NA for af2 this visit Offered previously. Respiratory: Airway is patent Respiratory effort is even, unlabored, Reports cough that is non-productive, persistent. Derm: Skin is pale. Historical: - Allergies: No known drug Allergies; - Home Meds: 1. aspirin 81 mg Oral tab 1 tab once daily 2. Synthroid 75 mcg Oral tab 1 tab once daily 3. omeprazole 20 mg Oral cpDR 1 cap once daily 4. lisinopril 20 mg Oral tab 1 tab once daily 5. Crestor Oral once daily 6. Tussionex Pennkinetic ER 10-8 mg/5 mL Oral su12 5 mL every 12 hours 7. amoxicillin 500 mg Oral tab 1 tab every 12 hours - PMHx: GERD; Antonio's Disease; High Cholesterol; Hypertension; - PSHx: Hernia repair; Vasectomy; left knee surgery times two; - Social history: Smoking status: Patient states former smoker of tobacco. No barriers to communication noted, The patient speaks fluent Hungarian. - Family history: Not pertinent. - : The pt / caregiver states he / she is not on anticoagulants. Home medication list is obtained from the patient. - Exposure Risk Screening:: None identified. Screenin:57 Screening information is obtained from the patient. Fall risk: No risks identified. [facility] Assistance ADL's: requires no assistance with activities of daily living. Abuse/DV Screen: The patient / caregiver reports he/she is: not in a situation that causes fear, pain or injury. Nutritional screening: No deficits noted. Advance Directives: Currently, there is a health care proxy, ibeth rizvi, . There is no active DNR order. There is a living will, There is an active Power of District Court Judge, ibeth rizvi, . home support is adequate. Assessment: :57 General: Appears in no apparent distress, comfortable, Behavior is appropriate for age, cjh cooperative. Pain: Denies pain. Neurological: Level of Consciousness is awake, alert, Oriented to person, place, time. Respiratory: Airway is patent Respiratory effort is even, unlabored, Respiratory pattern is regular, symmetrical, Breath sounds are coarse in left posterior lower lobe. Respiratory: Reports cough that is non-productive, persistent since 2 weeks. Derm: Skin is pink, warm & dry. 02:28 General: patient states feeling a little better, reviewed discharge instructions, [facility] denies further needs. Vital Signs: 01:01 BP 100 / 80 RA; Pulse 88; Resp 18 S; Temp 97.8(O); Pulse Ox 96% on R/A; Weight 79.38 kg af2 (R); Height 5 ft. 6 in. (167.64 cm) (R); Pain 0/10; 01:01 Body Mass Index 28.25 (79.38 kg, 167.64 cm) af2 Vitals: 01:01 Log In Time: March 07, 2016 at 00:51. af2 ED Course: 00:55 Patient visited by Stephania Avila. gjb 00:55 Patient moved to Waiting gjb 01:05 Triage Initiated af2 01:06 Patient visited by Adriana Guan RN. af2 01:07 Patient moved to PD af2 01:16 Daphne Alvarado PA-C is PHCP. dt4 01:16 Lorrie Beebe MD is Attending Physician. dt4 01:16 Patient visited by Daphne Alvarado PA-C. dt4 01:47 Basic Metabolic Profile Sent. cjh 01:47 CBC with Diff Sent. [facility] 01:57 The patient / caregiver is instructed regarding the plan of care and ED course. Patient [facility] has correct armband on for positive identification. Bed in low position. Call light in reach. Cardiac monitoring not applicable on this patient. 01:57 Inserted saline lock: 20 gauge in left antecubital area and blood collected. The [facility] patient tolerated the procedure well. Labs drawn. (by ED staff). Sent per order to lab. 02:00 Patient visited by Ibeth Rizvi RN. [facility] 02:28 Discontinued lock intact, bleeding controlled, pressure dressing applied, No [facility] redness/swelling at site. No procedures done that require assistance. 08:49 Chest, 2 View (pa\E\lat) Returned. EDMS 13:41 T-Sheet-- Draft Copy was scanned into [employer] and attached to record. gb Administered Medications: 01:32 CANCELLED (Other Intervention Used): methylPREDNISolone Sodium Succinate 125 mg IM once dt4 01:55 Drug: Solu-MEDROL 125 mg [Solu-Medrol 500 mg intravenous solution (125 mg)] Route: IVP; [facility] Site: left antecubital; 02:30 Follow up: Response: No Adverse Reaction [facility] 01:56 Drug: Albuterol 2.5 mg [albuterol sulfate 2.5 mg/0.5 mL solution for nebulization (0.5 jh6 mL)] Route: Nebulizer; 02:29 Drug: Ventolin 2 puffs [Ventolin HFA 90 mcg/actuation aerosol inhaler (2 puffs)] Route: [facility] Inhalation; 02:30 Follow up: Response: Med's dispensed home [facility] RT: 01:56 Initial Med Neb Given as ordered Patient was instructed and evaluated on procedure jh6 Patient tolerated procedure well without adverse effect. Respiratory: Airway is patent Respiratory effort is even, unlabored, Respiratory pattern is regular symmetrical, Breath sounds are clear in right upper lobe, left upper lobe, right middle lobe, left lower lobe and right lower lobe. 02:04 Respiratory: Airway is patent Respiratory effort is even, unlabored, Respiratory jh6 pattern is regular symmetrical, Breath sounds are clear in right upper lobe, left upper lobe, right middle lobe, left lower lobe and right lower lobe. Order Results: Lab Order: CBC with Diff; SPEC'M 03/07/16 01:44 Test: WHITE BLOOD COUNT; Value: 8.1; Range: 4.0-10.0; Units: K/mm3; Status: F Test: RED BLOOD COUNT; Value: 5.27; Range: 4.30-6.10; Units: M/mm3; Status: F Test: HEMOGLOBIN; Value: 15.8; Range: 14.0-18.0; Units: g/dl; Status: F Test: HEMATOCRIT; Value: 44.1; Range: 42.0-52.0; Units: %; Status: F Test: MEAN CORPUSCULAR VOLUME; Value: 83.7; Range: 80.0-96.0; Units: fl; Status: F Test: MEAN CORPUSCULAR HEMOGLOBIN; Value: 30.0; Range: 27.0-33.0; Units: pg; Status: F Test: MEAN CORPUSCULAR HGB CONC; Value: 35.9; Range: 32.0-36.5; Units: g/dl; Status: F Test: RED CELL DISTRIBUTION WIDTH; Value: 12.1; Range: 11.5-14.5; Units: %; Status: F Test: PLATELET COUNT, AUTOMATED; Value: 260; Range: 150-450; Units: k/mm3; Status: F Test: NEUTROPHILS %; Value: 62.4; Range: 36.0-66.0; Units: %; Status: F Test: LYMPH %; Value: 24.3; Range: 24.0-44.0; Units: %; Status: F Test: MONO %; Value: 5.9; Range: 0.0-5.0; Abnormal: Above high normal; Units: %; Status: F Test: EOS %; Value: 4.2; Range: 0.0-3.0; Abnormal: Above high normal; Units: %; Status: F Test: BASO %; Value: 0.3; Range: 0.0-1.0; Units: %; Status: F Test: LARGE UNSTAINED CELL %; Value: 2.9; Range: 0.0-4.0; Units: %; Status: F Test: NEUTROPHILS #; Value: 5.0; Range: 1.8-7.7; Units: K/mm3; Status: F Test: LYMPH #; Value: 2.0; Range: 1.5-4.5; Units: K/mm3; Status: F Test: MONO #; Value: 0.5; Range: 0.0-0.8; Units: K/mm3; Status: F Test: EOS #; Value: 0.3; Range: 0.0-0.50; Units: K/mm3; Status: F Test: BASO #; Value: 0.0; Range: 0.0-0.2; Units: K/mm3; Status: F Test: LARGE UNSTAINED CELL #; Value: 0.2; Range: 0.0-0.4; Units: K/mm3; Status: F Lab Order: Basic Metabolic Profile; SPEC'M 03/07/16 01:44 Test: GLUCOSE, FASTING; Value: 106; Range: 70-105; Abnormal: Above high normal; Units: MG/DL; Status: F Test: BLOOD UREA NITROGEN; Value: 18; Range: 7-18; Units: MG/DL; Status: F Test: CREATININE FOR GFR; Value: 1.33; Range: 0.70-1.30; Abnormal: Above high normal; Units: MG/DL; Status: F Test: GLOMERULAR FILTRATION RATE; Value: > 60.0; Range: >56; Status: F Test: SODIUM LEVEL; Value: 138; Range: 136-145; Units: MEQ/L; Status: F Test: POTASSIUM SERUM; Value: 4.1; Range: 3.5-5.1; Units: MEQ/L; Status: F Test: CHLORIDE LEVEL; Value: 103; Range: 98-107; Units: MEQ/L; Status: F Test: CARBON DIOXIDE LEVEL; Value: 29; Range: 21-32; Units: MEQ/L; Status: F Test: ANION GAP; Value: 6; Range: 8-16; Abnormal: Below low normal; Units: MEQ/L; Status: F Test: CALCIUM LEVEL; Value: 8.6; Range: 8.5-10.1; Units: MG/DL; Status: F Test Note: ; Units are mL/min/1.73 m2 Chronic Kidney Disease Staging per NKF: Stage I & II GFR >=60 Normal to Mildly Decreased Stage III GFR 30-59 Moderately Decreased Stage IV GFR 15-29 Severely Decreased Stage V GFR <15 Very Little GFR Left ESRD GFR <15 on [employer] Radiology Order: Chest, 2 View (pa\E\lat) Test: Chest, 2 View (pa\E\lat) REASON FOR EXAMINATION: Cough; Clinical: Cough .; ; Comparison: 09/30/2014 .; ; Technique: PA and lateral.; ; Findings:; The mediastinum and cardiac silhouette are normal. The lung paige are clear and; without acute consolidation, effusion, or pneumothorax. The skeletal structures; are intact and normal.; ; Impression:; 1. No acute cardiopulmonary process.; ; ; Signed by; Connor Díaz MD 03/07/2016 07:58 A; Outcome: 01:57 No special radiology studies were completed. Property :Personal belongings accompany Pt.[facility] 02:20 Discharge ordered by Provider. dt4 02:28 Discharge Assessment: Patient awake, alert and oriented x 3. No cognitive and/or [facility] functional deficits noted. Patient verbalized understanding of disposition instructions. patient administered narcotics - no. The following High Risk Discharge criteria are identified: None. Discharged to home ambulatory. Condition: good Condition: stable Condition: improved. Discharge instructions given to patient, Instructed on discharge instructions, follow up and referral plans. medication usage, Demonstrated understanding of instructions, medications, Pt was receptive of discharge instructions/ teaching. Prescriptions given X 1, Work note provided to patient. 02:30 Patient left the ED. [facility] Signatures: Dispatcher [employer] EDMS Martina Henriquez, Reg Reg James Galeas [email or web address] Ibeth Rizvi,RN RN [facility] Daphne Alvarado, PA-C PA-C dt4 Adriana Guan,RN RN Stephania Heredia Chart Complete MTDD
== END 2016-03-07 02:30 | disposition home or self-care (01) ==
LOC: M ED 00:54
DX: J06.9 Acute upper respiratory infection, unspecified (principal); H66.92 Otitis media, unspecified, left ear; K21.9 Gastro-esophageal reflux disease without esophagitis; E78.00 Pure hypercholesterolemia, unspecified; I10 Essential (primary) hypertension; E06.3 Autoimmune thyroiditis; Z87.891 Personal history of nicotine dependence; Z79.82 Long term (current) use of aspirin; Z79.899 Other long term (current) drug therapy
CPT/HCPCS: 36415; 71020; 80048; 85025; 94640; 96374; 99284; J2930

== ENCOUNTER → 2016-05-11 | Outpatient (CLI) | payer OTHER ==
[2016-05-11 08:14] LABS: BASO % 0.3 % (0.0-1.0); EOS # 0.1 K/mm3 (0.0-0.50); EOS % 2.5 % (0.0-3.0); LYMPH # 2.2 K/mm3 (1.5-4.5); LYMPH % 39.3 % (24.0-44.0); MEAN CORPUSCULAR HEMOGLOBIN 30.6 pg (27.0-33.0); MEAN CORPUSCULAR HGB CONC 35.3 g/dl (32.0-36.5); MEAN CORPUSCULAR VOLUME 86.6 fl (80.0-96.0); MONO # 0.3 K/mm3 (0.0-0.8); MONO % 5.8 % (0.0-5.0); NEUTROPHILS # 2.6 K/mm3 (1.8-7.7); NEUTROPHILS % 49.6 % (36.0-66.0); RED CELL DISTRIBUTION WIDTH 12.6 % (11.5-14.5); WHITE BLOOD COUNT 5.3 K/mm3 (4.0-10.0)
[2016-05-11 08:20] LABS: ALBUMIN 4.2 GM/DL (3.2-5.2); ALKALINE PHOSPHATASE 50 U/L (45-117); ALT/SGPT 76 U/L (12-78); ANION GAP 10 MEQ/L (8-16); AST/SGOT 36 U/L (15-37); BILIRUBIN,TOTAL 0.6 MG/DL (0.2-1.0); BLOOD UREA NITROGEN 18 MG/DL (7-18); CALCIUM LEVEL 8.5 MG/DL (8.5-10.1); CARBON DIOXIDE LEVEL 27 MEQ/L (21-32); CHLORIDE LEVEL 105 MEQ/L (98-107); CHOLESTEROL LEVEL 189 MG/DL (<200); CREATININE FOR GFR 1.16 MG/DL (0.70-1.30); FREE T4 1.09 NG/DL (0.76-1.46); GLOMERULAR FILTRATION RATE > 60.0 (>56); GLUCOSE, FASTING 98 MG/DL (70-105); POTASSIUM SERUM 4.5 MEQ/L (3.5-5.1); SODIUM LEVEL 142 MEQ/L (136-145); TOTAL PROTEIN 7.2 GM/DL (6.4-8.2); TRIGLYCERIDES LEVEL 124 MG/DL (<150)
== END ==
LOC: M LAB 07:12
PROVIDERS: ATTEND Family Medicine
DX: E78.2 Mixed hyperlipidemia (principal); Z12.5 Encounter for screening for malignant neoplasm of prostate; Z13.29 Encounter for screening for other suspected endocrine disorder; Z13.0 Encounter for screening for diseases of the blood and blood-forming organs and certain disorders involving the immune mechanism
CPT/HCPCS: 36415; 80053; 80061; 84439; 84443; 85027; G0103

== ENCOUNTER → 2016-10-08 | Outpatient (CLI) | payer OTHER ==
[2016-10-08 06:55] LABS: BASO % 0.3 % (0.0-1.0); EOS # 0.2 K/mm3 (0.0-0.50); EOS % 2.8 % (0.0-3.0); LARGE UNSTAINED CELL # 0.1 K/mm3 (0.0-0.4); LARGE UNSTAINED CELL % 2.6 % (0.0-4.0); LYMPH # 2.6 K/mm3 (1.5-4.5); LYMPH % 45.2 % (24.0-44.0); MEAN CORPUSCULAR HEMOGLOBIN 30.2 pg (27.0-33.0); MEAN CORPUSCULAR HGB CONC 34.6 g/dl (32.0-36.5); MEAN CORPUSCULAR VOLUME 87.2 fl (80.0-96.0); MONO # 0.4 K/mm3 (0.0-0.8); MONO % 6.5 % (0.0-5.0); NEUTROPHILS # 2.4 K/mm3 (1.8-7.7); NEUTROPHILS % 42.6 % (36.0-66.0); PLATELET COUNT, AUTOMATED 182 k/mm3 (150-450); RED CELL DISTRIBUTION WIDTH 12.6 % (11.5-14.5); WHITE BLOOD COUNT 5.5 K/mm3 (4.0-10.0)
[2016-10-08 07:31] LABS: ALBUMIN 4.2 GM/DL (3.2-5.2); ALBUMIN/GLOBULIN RATIO 1.45 (1.00-1.93); ALKALINE PHOSPHATASE 49 U/L (45-117); ALT/SGPT 53 U/L (12-78); ANION GAP 6 MEQ/L (8-16); AST/SGOT 23 U/L (15-37); BILIRUBIN,TOTAL 0.5 MG/DL (0.2-1.0); BLOOD UREA NITROGEN 21 MG/DL (7-18); CALCIUM LEVEL 8.7 MG/DL (8.5-10.1); CARBON DIOXIDE LEVEL 29 MEQ/L (21-32); CHLORIDE LEVEL 106 MEQ/L (98-107); CHOLESTEROL LEVEL 147 MG/DL (<200); CREATININE FOR GFR 1.27 MG/DL (0.70-1.30); FREE T4 1.02 NG/DL (0.76-1.46); GLOMERULAR FILTRATION RATE > 60.0 (>56); GLUCOSE, FASTING 104 MG/DL (70-105); POTASSIUM SERUM 4.4 MEQ/L (3.5-5.1); SODIUM LEVEL 141 MEQ/L (136-145); TOTAL PROTEIN 7.1 GM/DL (6.4-8.2); TRIGLYCERIDES LEVEL 67 MG/DL (<150)
== END ==
LOC: M LAB 06:24
PROVIDERS: ATTEND Family Medicine
DX: E78.2 Mixed hyperlipidemia (principal); E06.3 Autoimmune thyroiditis; I10 Essential (primary) hypertension

== ENCOUNTER 2017-04-28 13:35 | Emergency (ER) | payer OTHER ==
[2017-04-28] MEDS: ADACEL/BOOSTRIX VACCINE (DIPHTH/PERTUSS/ACELL/TETANUS)0.5ML SYR (90715) IM (13:48)
== END 2017-04-28 14:09 | disposition home or self-care (01) ==
LOC: M ED 13:35
DX: S61.213A Laceration without foreign body of left middle finger without damage to nail, initial encounter (principal); W45.0XXA Nail entering through skin, initial encounter; Y92.099 Unspecified place in other non-institutional residence as the place of occurrence of the external cause; Y93.9 Activity, unspecified; Z79.899 Other long term (current) drug therapy
CPT/HCPCS: 90715

== ENCOUNTER → 2017-07-15 | Outpatient (CLI) | payer OTHER ==
[2017-07-15 04:35] LABS: ALBUMIN 4.5 GM/DL (3.2-5.2); ALBUMIN/GLOBULIN RATIO 1.41 (1.00-1.93); ALKALINE PHOSPHATASE 55 U/L (45-117); ALT/SGPT 63 U/L (12-78); ANION GAP 7 MEQ/L (8-16); AST/SGOT 28 U/L (7-37); BILIRUBIN,TOTAL 0.5 MG/DL (0.2-1.0); BLOOD UREA NITROGEN 31 MG/DL (7-18); CALCIUM LEVEL 9.1 MG/DL (8.5-10.1); CARBON DIOXIDE LEVEL 29 MEQ/L (21-32); CHLORIDE LEVEL 105 MEQ/L (98-107); CHOLESTEROL LEVEL 170 MG/DL (<200); CHOLESTEROL RISK RATIO 3.035 (<5); CREATININE FOR GFR 1.31 MG/DL (0.70-1.30); GLOMERULAR FILTRATION RATE > 60.0 (>56); GLUCOSE, FASTING 104 MG/DL (70-100); HDL CHOLESTEROL 56 MG/DL (>40); LDL CHOLESTEROL 88.2 MG/DL (<100); NON-HDL-C 114 MG/DL; POTASSIUM SERUM 4.4 MEQ/L (3.5-5.1); SODIUM LEVEL 141 MEQ/L (136-145); TOTAL PROTEIN 7.7 GM/DL (6.4-8.2); TRIGLYCERIDES LEVEL 129 MG/DL (<150)
== END ==
LOC: M LAB 02:45
DX: E78.2 Mixed hyperlipidemia (principal); E06.3 Autoimmune thyroiditis
CPT/HCPCS: 84443

== ENCOUNTER 2017-10-19 17:18 | Emergency (ER) | payer OTHER ==
[2017-10-19] MEDS: KETOROLAC 30 MG/ML VIAL (J1885) IV (17:55)
[2017-10-19 18:03] LABS: BASO % 0.5 % (0.0-1.0); EOS # 0.2 10^3/uL (0.0-0.50); EOS % 2.7 % (0.0-3.0); HEMATOCRIT 42.1 % (42.0-52.0); HEMOGLOBIN 14.4 g/dl (13.5-17.5); IMMATURE GRANULOCYTE % 0.3 % (0-3.0); LYMPH # 2.8 10^3/uL (1.5-4.5); LYMPH % 45.4 % (24.0-44.0); MEAN CORPUSCULAR HEMOGLOBIN 29.4 pg (27.0-33.0); MEAN CORPUSCULAR HGB CONC 34.2 g/dl (32.0-36.5); MEAN CORPUSCULAR VOLUME 86.1 fl (80.0-96.0); MONO # 0.6 10^3/uL (0.0-0.8); MONO % 9.3 % (0.0-5.0); NEUTROPHILS # 2.6 10^3/uL (1.8-7.7); NEUTROPHILS % 41.8 % (36.0-66.0); PLATELET COUNT, AUTOMATED 187 10^3/uL (150-450); RED BLOOD COUNT 4.89 10^6/uL (4.30-6.10); RED CELL DISTRIBUTION WIDTH 12.2 % (11.5-14.5); WHITE BLOOD COUNT 6.2 10^3/uL (4.0-10.0)
[2017-10-19 18:06] LABS: INR 0.89; PROTHROMBIN TIME 12.1 SECONDS (12.1-14.4)
[2017-10-19 18:19] LABS: ALBUMIN 4.1 GM/DL (3.2-5.2); ALBUMIN/GLOBULIN RATIO 1.41 (1.00-1.93); ALKALINE PHOSPHATASE 48 U/L (45-117); ALT/SGPT 79 U/L (12-78); ANION GAP 7 MEQ/L (8-16); AST/SGOT 35 U/L (7-37); BILIRUBIN,DIRECT 0.1 MG/DL (0.0-0.2); BILIRUBIN,TOTAL 0.4 MG/DL (0.2-1.0); BLOOD UREA NITROGEN 23 MG/DL (7-18); CALCIUM LEVEL 8.7 MG/DL (8.5-10.1); CARBON DIOXIDE LEVEL 27 MEQ/L (21-32); CHLORIDE LEVEL 109 MEQ/L (98-107); CK-MB VALUE MASS 3.6 NG/ML (<3.6); CPK CREATINE PHOSPHOKINASE 290 U/L (39-308); CREATININE FOR GFR 1.36 MG/DL (0.70-1.30); GLOMERULAR FILTRATION RATE 58.6 (>56); GLUCOSE, FASTING 93 MG/DL (70-100); LIPASE 355 U/L (73-393); MB/CK RELATIVE INDEX 1.24 (< OR =4); POTASSIUM SERUM 3.9 MEQ/L (3.5-5.1); SODIUM LEVEL 143 MEQ/L (136-145); TROPONIN I 0.02 NG/ML (< 0.10)
[2017-10-19 18:21] LABS: D-DIMER QUANT < 270.0 ng/ml (<500)
[2017-10-19 20:31] LABS: CPK CREATINE PHOSPHOKINASE 248 U/L (39-308); TROPONIN I 0.03 NG/ML (< 0.10)
[2017-10-19] MEDS: NS 1,000 ML IV (21:00)
== END 2017-10-19 22:15 | disposition home or self-care (01) ==
LOC: M ED 17:18
DX: K82.8 Other specified diseases of gallbladder (principal); I10 Essential (primary) hypertension; E78.5 Hyperlipidemia, unspecified; K21.9 Gastro-esophageal reflux disease without esophagitis; E06.3 Autoimmune thyroiditis; Z79.899 Other long term (current) drug therapy
CPT/HCPCS: J1885

== ENCOUNTER 2018-01-09 16:02 | Outpatient (CLI) | payer OTHER ==
[2018-01-13 08:07] LABS: BASO % 0.4 % (0.0-1.0); EOS # 0.2 10^3/uL (0.0-0.50); EOS % 3.6 % (0.0-3.0); HEMATOCRIT 42.4 % (42.0-52.0); HEMOGLOBIN 14.8 g/dl (13.5-17.5); IMMATURE GRANULOCYTE % 0.2 % (0-3.0); LYMPH # 2.2 10^3/uL (1.5-4.5); LYMPH % 42.2 % (24.0-44.0); MEAN CORPUSCULAR HEMOGLOBIN 29.5 pg (27.0-33.0); MEAN CORPUSCULAR HGB CONC 34.9 g/dl (32.0-36.5); MEAN CORPUSCULAR VOLUME 84.5 fl (80.0-96.0); MONO # 0.4 10^3/uL (0.0-0.8); MONO % 6.9 % (0.0-5.0); NEUTROPHILS # 2.4 10^3/uL (1.8-7.7); NEUTROPHILS % 46.7 % (36.0-66.0); PLATELET COUNT, AUTOMATED 184 10^3/uL (150-450); RED BLOOD COUNT 5.02 10^6/uL (4.30-6.10); RED CELL DISTRIBUTION WIDTH 11.7 % (11.5-14.5); WHITE BLOOD COUNT 5.2 10^3/uL (4.0-10.0)
[2018-01-13 08:40] LABS: ALBUMIN 4.2 GM/DL (3.2-5.2); ALBUMIN/GLOBULIN RATIO 1.62 (1.00-1.93); ALKALINE PHOSPHATASE 47 U/L (45-117); ALT/SGPT 71 U/L (12-78); ANION GAP 5 MEQ/L (8-16); AST/SGOT 31 U/L (7-37); BILIRUBIN,DIRECT 0.2 MG/DL (0.0-0.2); BILIRUBIN,TOTAL 0.6 MG/DL (0.2-1.0); BLOOD UREA NITROGEN 25 MG/DL (7-18); CALCIUM LEVEL 8.7 MG/DL (8.5-10.1); CARBON DIOXIDE LEVEL 29 MEQ/L (21-32); CHLORIDE LEVEL 106 MEQ/L (98-107); CREATININE FOR GFR 1.17 MG/DL (0.70-1.30); FREE T4 1.04 NG/DL (0.76-1.46); GLOMERULAR FILTRATION RATE > 60.0 (>56); GLUCOSE, FASTING 93 MG/DL (70-100); POTASSIUM SERUM 4.7 MEQ/L (3.5-5.1); SODIUM LEVEL 140 MEQ/L (136-145); TOTAL PROTEIN 6.8 GM/DL (6.4-8.2)
== END 2018-01-13 ==
LOC: M LAB 16:02
DX: E78.2 Mixed hyperlipidemia (principal); E06.3 Autoimmune thyroiditis; I10 Essential (primary) hypertension

== ENCOUNTER → 2018-01-13 | Outpatient (CLI) | payer OTHER ==
[2018-01-13 08:07] LABS: BASO % 0.6 % (0.0-1.0); EOS # 0.2 10^3/uL (0.0-0.50); EOS % 3.8 % (0.0-3.0); HEMATOCRIT 42.9 % (42.0-52.0); HEMOGLOBIN 14.8 g/dl (13.5-17.5); IMMATURE GRANULOCYTE % 0.2 % (0-3.0); LYMPH # 2.1 10^3/uL (1.5-4.5); LYMPH % 42.1 % (24.0-44.0); MEAN CORPUSCULAR HEMOGLOBIN 29.7 pg (27.0-33.0); MEAN CORPUSCULAR HGB CONC 34.5 g/dl (32.0-36.5); MONO # 0.4 10^3/uL (0.0-0.8); MONO % 8.3 % (0.0-5.0); NEUTROPHILS # 2.3 10^3/uL (1.8-7.7); PLATELET COUNT, AUTOMATED 181 10^3/uL (150-450); RED BLOOD COUNT 4.99 10^6/uL (4.30-6.10); RED CELL DISTRIBUTION WIDTH 11.7 % (11.5-14.5)
[2018-01-13 08:32] LABS: ALBUMIN 4.3 GM/DL (3.2-5.2); ALBUMIN/GLOBULIN RATIO 1.65 (1.00-1.93); ALKALINE PHOSPHATASE 49 U/L (45-117); ALT/SGPT 73 U/L (12-78); AMYLASE 79 U/L (25-115); ANION GAP 5 MEQ/L (8-16); AST/SGOT 30 U/L (7-37); BILIRUBIN,TOTAL 0.7 MG/DL (0.2-1.0); BLOOD UREA NITROGEN 26 MG/DL (7-18); CARBON DIOXIDE LEVEL 28 MEQ/L (21-32); CHLORIDE LEVEL 106 MEQ/L (98-107); CREATININE FOR GFR 1.18 MG/DL (0.70-1.30); GLOMERULAR FILTRATION RATE > 60.0 (>56); GLUCOSE, FASTING 92 MG/DL (70-100); LIPASE 238 U/L (73-393); POTASSIUM SERUM 4.6 MEQ/L (3.5-5.1); SODIUM LEVEL 139 MEQ/L (136-145); TOTAL PROTEIN 6.9 GM/DL (6.4-8.2)
== END ==
LOC: M LAB 07:22
DX: K82.4 Cholesterolosis of gallbladder (principal); M23.304 Other meniscus derangements, unspecified medial meniscus, left knee
CPT/HCPCS: 76705

== ENCOUNTER → 2018-09-07 | Outpatient (REF) | payer OTHER ==
[~2018-09-07] MED LIST: ASPI81TA85 PO; ATOR1TAB21 PO; LEVO2TA PO; LISI-538 PO; OMEP40CA2 PO
== END ==
LOC: M LAB 05:30
PROVIDERS: ATTEND Physician Assistant
DX: R53.83 Other fatigue (principal)

== ENCOUNTER → 2018-09-16 | Outpatient (CLI) | payer OTHER ==
[2018-09-16 17:59] LABS: BASO % 0.5 % (0.0-1.0); EOS # 0.2 10^3/uL (0.0-0.50); EOS % 2.7 % (0.0-3.0); HEMATOCRIT 43.7 % (42.0-52.0); HEMOGLOBIN 15.4 g/dl (13.5-17.5); LYMPH # 2.6 10^3/uL (1.5-4.5); LYMPH % 41.6 % (24.0-44.0); MEAN CORPUSCULAR HEMOGLOBIN 29.9 pg (27.0-33.0); MEAN CORPUSCULAR HGB CONC 35.2 g/dl (32.0-36.5); MEAN CORPUSCULAR VOLUME 84.9 fl (80.0-96.0); MONO # 0.4 10^3/uL (0.0-0.8); MONO % 6.6 % (0.0-5.0); NEUTROPHILS # 3.1 10^3/uL (1.8-7.7); NEUTROPHILS % 48.3 % (36.0-66.0); PLATELET COUNT, AUTOMATED 183 10^3/uL (150-450); RED BLOOD COUNT 5.15 10^6/uL (4.30-6.10); WHITE BLOOD COUNT 6.3 10^3/uL (4.0-10.0)
[2018-09-16 18:28] LABS: ALBUMIN 4.4 GM/DL (3.2-5.2); ALT/SGPT 72 U/L (12-78); BILIRUBIN,TOTAL 0.4 MG/DL (0.2-1.0); BLOOD UREA NITROGEN 27 MG/DL (7-18); CALCIUM LEVEL 9.1 MG/DL (8.5-10.1); CARBON DIOXIDE LEVEL 28 MEQ/L (21-32); CHLORIDE LEVEL 108 MEQ/L (98-107); CHOLESTEROL LEVEL 200 MG/DL (<200); CHOLESTEROL RISK RATIO 3.636 (<5); CREATININE FOR GFR 1.21 MG/DL (0.70-1.30); FREE T4 0.93 NG/DL (0.76-1.46); GLOMERULAR FILTRATION RATE > 60.0 (>56); GLUCOSE, FASTING 94 MG/DL (70-100); HDL CHOLESTEROL 55 MG/DL (>40); LDL CHOLESTEROL 98 MG/DL (<100); NON-HDL-C 145 MG/DL; POTASSIUM SERUM 3.9 MEQ/L (3.5-5.1); SODIUM LEVEL 142 MEQ/L (136-145); TOTAL PROTEIN 7.4 GM/DL (6.4-8.2); TRIGLYCERIDES LEVEL 236 MG/DL (<150)
[2018-09-19 00:08] LABS: Lyme Disease IgG/IgM Antibodie <0.91 ISR (0.00-0.90); Lyme Disease IgM Ab Quantitati <0.80 index (0.00-0.79); TESTOSTERONE FREE (DIRECT) 5.1 pg/mL (7.2-24.0)
== END ==
LOC: M LAB 16:53
PROVIDERS: ATTEND Physician Assistant
DX: E78.2 Mixed hyperlipidemia (principal); E06.3 Autoimmune thyroiditis

== ENCOUNTER → 2018-09-30 | Outpatient (CLI) | payer OTHER ==
[2018-09-30 08:16] LABS: C REACTIVE PROTEIN QUANTITATIV < 0.30 MG/DL (0.00-0.30); RHEUMATOID FACTOR QUANT < 10.0 IU/ML (<15.0)
[2018-10-03 00:11] LABS: ANA (HEP2) Negative (.); CYCLIC CITRULLINATED PEPTIDE 3 units (0-19); PSA TOTAL 0.6 ng/mL (0.0-4.0); TESTOSTERONE FREE (DIRECT) 5.7 pg/mL (7.2-24.0)
== END ==
LOC: M LAB 07:08
PROVIDERS: ATTEND Physician Assistant
DX: E29.1 Testicular hypofunction (principal); M25.50 Pain in unspecified joint

== ENCOUNTER → 2018-10-19 | Outpatient (CLI) | payer OTHER ==
[~2018-10-19] MED LIST changes: -OMEP40CA2 PO; +OMEP40CA97 PO
--- NOTE | 2018-10-19 10:52 | REP ---
The right foot four views : There is no fracture or dislocation. Mineralization and joint spaces are normal. There are no calcifications or foreign bodies. Impression: Negative right foot . Electronically Signed by Franck Madden MD 10/19/2018 09:53 A
== END ==
LOC: M RAD 08:57
PROVIDERS: ATTEND Physician Assistant
DX: M76.61 Achilles tendinitis, right leg (principal)

== ENCOUNTER → 2019-03-02 | Outpatient (CLI) | payer OTHER ==
[2019-03-02 06:28] LABS: BASO % 0.4 % (0.0-1.0); EOS # 0.2 10^3/uL (0.0-0.5); HEMATOCRIT 45.6 % (42.0-52.0); HEMOGLOBIN 15.2 g/dl (13.5-17.5); LYMPH # 1.9 10^3/uL (1.5-5.0); LYMPH % 42.5 % (24.0-44.0); MEAN CORPUSCULAR HGB CONC 33.3 g/dl (32.0-36.5); MEAN CORPUSCULAR VOLUME 86.9 fl (80.0-96.0); MONO # 0.3 10^3/uL (0.0-0.8); MONO % 6.8 % (0.0-5.0); NEUTROPHILS # 2.1 10^3/uL (1.5-8.5); NEUTROPHILS % 45.9 % (36.0-66.0); PLATELET COUNT, AUTOMATED 175 10^3/uL (150-450); RED BLOOD COUNT 5.25 10^6/uL (4.30-6.10); WHITE BLOOD COUNT 4.5 10^3/uL (4.0-10.0)
[2019-03-02 07:09] LABS: ALT/SGPT 58 U/L (12-78); BILIRUBIN,TOTAL 0.6 MG/DL (0.2-1.0); BLOOD UREA NITROGEN 34 MG/DL (7-18); CARBON DIOXIDE LEVEL 26 MEQ/L (21-32); CHLORIDE LEVEL 109 MEQ/L (98-107); CHOLESTEROL LEVEL 162 MG/DL (<200); CREATININE FOR GFR 1.18 MG/DL (0.70-1.30); FREE T4 0.98 NG/DL (0.76-1.46); GLOMERULAR FILTRATION RATE > 60.0 (>56); GLUCOSE, FASTING 94 MG/DL (70-100); HDL CHOLESTEROL 54 MG/DL (>40); LDL CHOLESTEROL 80 MG/DL (<100); NON-HDL-C 108 MG/DL; POTASSIUM SERUM 4.4 MEQ/L (3.5-5.1); SODIUM LEVEL 142 MEQ/L (136-145); TRIGLYCERIDES LEVEL 139 MG/DL (<150)
[2019-03-02 09:44] LABS: TOTAL 25(OH) VITAMIN D 35.1 NG/ML (30.0-100.0)
[2019-03-04 00:07] LABS: TESTOSTERONE FREE (DIRECT) 16.4 pg/mL (7.2-24.0)
== END ==
LOC: M LAB 05:58
PROVIDERS: ATTEND Physician Assistant
DX: I10 Essential (primary) hypertension (principal)

== ENCOUNTER 2020-01-05 00:10 | Emergency (ER) | payer OTHER ==
[~2020-01-05] VITALS: Ht 167.6 cm; Wt 79.5 kg
[~2020-01-05 00:10] MED LIST changes: -ASPI81TA85 PO; +ASPI81TA86 PO
[2020-01-05] MEDS ORDERED: TEST1GEL10 (00:21)
[2020-01-05] MEDS ORDERED: VITA50005 (00:21)
[2020-01-05] MEDS ORDERED: ATOR40TA75 (00:21)
[2020-01-05] MEDS ORDERED: LEVO88TA3 (00:21)
[2020-01-05 01:43] LABS: BASO % 0.3 % (0.0-1.0); EOS # 0.2 10^3/uL (0.0-0.5); EOS % 2.4 % (0.0-3.0); HEMOGLOBIN 13.8 g/dl (13.5-17.5); LYMPH # 2.6 10^3/uL (1.5-5.0); LYMPH % 37.4 % (24.0-44.0); MEAN CORPUSCULAR HEMOGLOBIN 29.1 pg (27.0-33.0); MEAN CORPUSCULAR HGB CONC 33.7 g/dl (32.0-36.5); MEAN CORPUSCULAR VOLUME 86.3 fl (80.0-96.0); MONO # 0.6 10^3/uL (0.0-0.8); MONO % 9.1 % (0.0-5.0); NEUTROPHILS # 3.5 10^3/uL (1.5-8.5); NEUTROPHILS % 50.7 % (36.0-66.0); PLATELET COUNT, AUTOMATED 167 10^3/uL (150-450); RED BLOOD COUNT 4.75 10^6/uL (4.30-6.10)
--- NOTE | 2020-01-05 01:43 | REPVR ---
PROCEDURE INFORMATION: Exam: XR Right Ankle Exam date and time: 01/05/2020 1:10 AM Age: 54 years old Clinical indication: Pain; Ankle; Right; Additional info: No injury just pain and swelling TECHNIQUE: Imaging protocol: XR Right ankle. Views: 3 or more views. COMPARISON: CR Foot, complete 10/19/2018 9:15 AM FINDINGS: Bones/joints: No acute fractures. Somewhat thickened Achilles tendon shadow. Mild degenerative changes. Small stable heterotopic ossification distal to the medial malleolus. Soft tissues: Normal. IMPRESSION: No acute fractures. Somewhat thickened Achilles tendon shadow. Correlate clinically for tendinitis. Electronically signed by: Bladimir Calderon On 01/05/2020 01:43:18 AM
[2020-01-05 02:04] LABS: ERYTHROCYTE SEDIMENTATION RATE 3 mm/hr (0-20)
[2020-01-05 02:15] LABS: BLOOD UREA NITROGEN 25 MG/DL (7-18); CALCIUM LEVEL 8.3 MG/DL (8.5-10.1); CARBON DIOXIDE LEVEL 24 MEQ/L (21-32); CHLORIDE LEVEL 112 MEQ/L (98-107); CPK CREATINE PHOSPHOKINASE 239 U/L (39-308); CREATININE FOR GFR 1.17 MG/DL (0.70-1.30); GLOMERULAR FILTRATION RATE > 60.0 (>56); GLUCOSE, FASTING 92 MG/DL (70-100); POTASSIUM SERUM 4.4 MEQ/L (3.5-5.1); SODIUM LEVEL 141 MEQ/L (136-145); URIC ACID 6.3 MG/DL (3.5-7.2)
--- NOTE | 2020-01-05 03:24 | REPVR ---
PROCEDURE INFORMATION: Exam: US Left Non-Vascular Joint or Other Extremity Structure, Limited Lower Extremity Exam date and time: 01/05/2020 2:33 AM Age: 54 years old Clinical indication: Pain; Heel; Left; Additional info: Swelling over achilles, tear vs seroma? TECHNIQUE: Imaging protocol: Left US joint or other nonvascular extremity structure or structures. Real-time ultrasound with image documentation. Limited study. Exam focused on the lower extremity in the region of clinical interest. COMPARISON: No relevant prior studies available. FINDINGS: Soft tissues: The visualized Achilles tendon appears to be intact. Trace fluid is noted deep to the Achilles tendon near the insertion and measures 2 x 14 x 7 mm and likely reflects trace fluid within a bursa. IMPRESSION: 1. Trace fluid deep to the Achilles tendon adjacent to the calcaneal insertion which likely reflects trace fluid within a bursa. 2. Otherwise grossly negative sonogram. Electronically signed by: Donis León On 01/05/2020 03:24:18 AM
[2020-01-05] MEDS ORDERED: COLC1TAB13 PO (03:40)
[2020-01-05] MEDS ORDERED: INDO50CA91 PO (03:40)
[2020-01-05] MEDS ORDERED: INDOMETHACIN 25 MG CAP PO ONE (03:45)
[2020-01-05] MEDS ORDERED: COLCHICINE 0.6 MG TAB PO ONE (03:45)
[2020-01-05] MEDS ORDERED: NORCO 5/325MG TABLET (BULK FOR ED) PO ONE (04:00)
[2020-01-05 04:22] VITALS: BP 108/70
== END 2020-01-05 04:25 | disposition home or self-care (01) ==
LOC: M ED 00:10
DX: M10.9 Gout, unspecified (principal); M25.571 Pain in right ankle and joints of right foot; I10 Essential (primary) hypertension; E78.5 Hyperlipidemia, unspecified; E78.00 Pure hypercholesterolemia, unspecified; K21.9 Gastro-esophageal reflux disease without esophagitis; Z79.899 Other long term (current) drug therapy

== ENCOUNTER → 2020-03-02 | Outpatient (CLI) | payer OTHER ==
[~2020-03-02] MED LIST changes: +ATOR40TA75; +COLC0.6T47 PO; +INDO50CA91 PO; +LEVO88TA3; +TEST1GEL10; +VITA50005
--- NOTE | 2020-03-02 10:16 | REP ---
INDICATION: PAIN IN RIGHT ANKLE. COMPARISON: Radiographs 01/05/2020. TECHNIQUE: Multiple sequences are obtained in the axial, coronal and sagittal planes. FINDINGS: The Achilles, anterior tibial, posterior tibial, flexor hallucis longus, flexor digitorum longus and peroneal tendons are all intact without significant tenosynovitis. However there is ill-defined high signal on T2 weighted images involving the distal aspect of the Achilles tendon at its insertion onto the posterior calcaneus consistent with mild tendinitis. The anterior and posterior talofibular, calcaneofibular and deltoid ligaments appear intact. Plantar tendon appears intact. There is no plantar fasciitis. There is increased signal on T2 weighted images throughout the sinus tarsi involving the ligamentous structures in this region. This may indicate sinus tarsi syndrome.. Mild diffuse fluid is seen at the posterior aspect of the talocalcaneal joint, extending slightly inferiorly along the medial margin of the calcaneus.. The cartilaginous surfaces are smooth. No osteochondral defect is seen at the tibiotalar joint. There is no bone marrow edema or occult fracture. IMPRESSION: Findings compatible with mild distal Achilles tendinitis. Findings suggesting sinus tarsi syndrome. Mild joint fluid posterior talocalcaneal joint. <Electronically signed by Franck Clark > 03/02/20 [id number]
== END ==
LOC: M RAD 06:20
PROVIDERS: ATTEND Physician Assistant
DX: M25.571 Pain in right ankle and joints of right foot (principal)

== ENCOUNTER → 2020-04-21 | Outpatient (CLI) | payer OTHER ==
[~2020-04-21] MED LIST changes: -LISI-538 PO; +LISI20TA33 PO
[2020-04-21 06:57] LABS: BASO % 0.6 % (0.0-1.0); EOS # 0.1 10^3/uL (0.0-0.5); HEMATOCRIT 46.6 % (42.0-52.0); HEMOGLOBIN 15.7 g/dl (13.5-17.5); LYMPH # 2.3 10^3/uL (1.5-5.0); MEAN CORPUSCULAR HEMOGLOBIN 29.2 pg (27.0-33.0); MEAN CORPUSCULAR HGB CONC 33.7 g/dl (32.0-36.5); MEAN CORPUSCULAR VOLUME 86.8 fl (80.0-96.0); MONO # 0.5 10^3/uL (0.0-0.8); MONO % 8.7 % (2.0-8.0); NEUTROPHILS # 2.5 10^3/uL (1.5-8.5); NEUTROPHILS % 45.3 % (36.0-66.0); PLATELET COUNT, AUTOMATED 189 10^3/uL (150-450); RED BLOOD COUNT 5.37 10^6/uL (4.30-6.10); WHITE BLOOD COUNT 5.4 10^3/uL (4.0-10.0)
[2020-04-21 07:30] LABS: ALBUMIN 4.3 GM/DL (3.2-5.2); ALT/SGPT 66 U/L (12-78); BILIRUBIN,DIRECT 0.2 MG/DL (0.0-0.2); BILIRUBIN,TOTAL 0.7 MG/DL (0.2-1.0); BLOOD UREA NITROGEN 24 MG/DL (7-18); CARBON DIOXIDE LEVEL 28 MEQ/L (21-32); CHLORIDE LEVEL 105 MEQ/L (98-107); CHOLESTEROL LEVEL 184 MG/DL (<200); CHOLESTEROL RISK RATIO 3.016 (<5); CREATININE FOR GFR 1.25 MG/DL (0.70-1.30); GLOMERULAR FILTRATION RATE > 60.0 (>56); GLUCOSE, FASTING 101 MG/DL (70-100); HDL CHOLESTEROL 61 MG/DL (>40); LDL CHOLESTEROL 92 MG/DL (<100); NON-HDL-C 123 MG/DL; POTASSIUM SERUM 4.4 MEQ/L (3.5-5.1); SODIUM LEVEL 139 MEQ/L (136-145); TOTAL PROTEIN 7.1 GM/DL (6.4-8.2); TRIGLYCERIDES LEVEL 155 MG/DL (<150)
[2020-04-21 09:08] LABS: TOTAL 25(OH) VITAMIN D 82.9 NG/ML (30.0-100.0)
[2020-04-21 09:17] LABS: HEMOGLOBIN A1c 5.2 %
[2020-04-22 15:11] LABS: TESTOSTERONE FREE (DIRECT) 26.8 pg/mL (7.2-24.0)
== END ==
LOC: M LAB 06:27
PROVIDERS: ATTEND Physician Assistant
DX: E29.1 Testicular hypofunction (principal); E78.2 Mixed hyperlipidemia; E06.3 Autoimmune thyroiditis

== ENCOUNTER 2020-05-13 09:23 | Emergency (ER) | payer OTHER ==
[~2020-05-13] VITALS: Ht 167.6 cm; Wt 81.8 kg
[2020-05-13] MEDS ORDERED: HYDROMORPHONE HCL 0.5 MG/ 0.5 ML SYRINGE (J1170 PER 1) IV PRN (09:35)
[2020-05-13] MEDS ORDERED: NS 1,000 ML IV ONE (09:35)
[2020-05-13 09:50] LABS: BASO % 0.4 % (0.0-1.0); EOS # 0.1 10^3/uL (0.0-0.5); HEMATOCRIT 42.7 % (42.0-52.0); HEMOGLOBIN 14.6 g/dl (13.5-17.5); LYMPH # 2.4 10^3/uL (1.5-5.0); LYMPH % 42.6 % (24.0-44.0); MEAN CORPUSCULAR HEMOGLOBIN 29.4 pg (27.0-33.0); MEAN CORPUSCULAR HGB CONC 34.2 g/dl (32.0-36.5); MEAN CORPUSCULAR VOLUME 85.9 fl (80.0-96.0); MONO # 0.5 10^3/uL (0.0-0.8); MONO % 8.3 % (2.0-8.0); NEUTROPHILS # 2.6 10^3/uL (1.5-8.5); NEUTROPHILS % 46.5 % (36.0-66.0); PLATELET COUNT, AUTOMATED 171 10^3/uL (150-450); RED BLOOD COUNT 4.97 10^6/uL (4.30-6.10); WHITE BLOOD COUNT 5.6 10^3/uL (4.0-10.0)
--- NOTE | 2020-05-13 09:56 | REP ---
INDICATION: CHEST PAIN COMPARISON: 10/19/2017 TECHNIQUE: Portable AP view of the chest FINDINGS: The mediastinum and cardiac silhouette are stable and within normal limits for portable technique. The lung paige are clear without acute consolidation, effusion, or pneumothorax. Skeletal structures are intact. IMPRESSION: No acute cardiopulmonary process appreciated. <Electronically signed by Connor Díaz > 05/13/20 [id number]
[2020-05-13 10:00] LABS: INR 0.9; PROTHROMBIN TIME 12.3 SECONDS (12.5-14.3)
[2020-05-13 10:01] LABS: PARTIAL THROMBOPLASTIN TIME 24.1 SECONDS (24.2-38.5)
[2020-05-13 10:19] LABS: ALBUMIN 4.2 GM/DL (3.2-5.2); BILIRUBIN,DIRECT 0.2 MG/DL (0.0-0.2); BILIRUBIN,TOTAL 0.6 MG/DL (0.2-1.0); CK-MB VALUE MASS 3.2 NG/ML (<3.6); CREATININE FOR GFR 1.38 MG/DL (0.70-1.30); FREE T4 0.98 NG/DL (0.76-1.46); MB/CK RELATIVE INDEX 1.58 (< OR =4); POTASSIUM SERUM 5.1 MEQ/L (3.5-5.1); THYROID STIMULATING HORMONE 1.24 uIU/ML (0.358-3.740); TOTAL PROTEIN 6.8 GM/DL (6.4-8.2); TROPONIN I 0.04 NG/ML (< 0.10)
[2020-05-13] MEDS ORDERED: ISOVUE-370 76% 100ML VIAL As Ordered ONE (10:22)
--- NOTE | 2020-05-13 10:57 | REP ---
INDICATION: right sided chest pain. COMPARISON: None. TECHNIQUE: Chest CT with IV contrast, CT pulmonary artery angiography. FINDINGS: There are no emboli in the pulmonary trunk or central pulmonary arteries. There are no emboli in the pulmonary artery lobar segment branches. There are no infiltrates or pleural effusions. There are no pulmonary masses or nodules. There is no mediastinal, hilar or axillary lymph node enlargement. The thoracic aorta is unremarkable. Cardiac size is normal. There is no pericardial effusion. The visualized upper abdominal contents are unremarkable. IMPRESSION: There are no pulmonary emboli. Otherwise, essentially negative CT study of chest. <Electronically signed by Franck Madden > 05/13/20 [id number]
--- NOTE | 2020-05-13 11:02 | REP ---
INDICATION: right upper quadrant pain. COMPARISON: Abdomen CT dated 02/01/2005. TECHNIQUE: Abdomen/pelvis CT with IV contrast, without bowel contrast. FINDINGS: There is wall thickening in the hepatic flexure of the colon and transverse colon compatible with infectious versus inflammatory colitis. This is a change from the comparison study. The hepatic parenchyma, gallbladder, pancreas, spleen, adrenals and kidneys are unremarkable. The stomach is distended with ingested content. The abdominal aorta is unremarkable. There is no periaortic adenopathy or mass. There is no bowel distention or obstruction. The mesentery is unremarkable. Pelvis: The appendix is unremarkable. The pelvic bowel loops are unremarkable. The bladder is unremarkable. There is no ascites or adenopathy. There is degenerative disc disease at L4-5 and L5-S1 in the lumbar spine. IMPRESSION: Wall thickening of the colonic hepatic flexure and transverse colon compatible with infectious versus inflammatory colitis in the appropriate clinical setting. Otherwise, negative abdomen/pelvis CT except for lumbar spine degenerative disc disease.. <Electronically signed by Franck Madden > 05/13/20 [id number]
--- NOTE | 2020-05-13 12:07 | REP ---
INDICATION: pain. COMPARISON: Comparison CT study May 13, 2020.. TECHNIQUE: Right upper quadrant sonography. FINDINGS: Scanning through the right upper quadrant the abdomen demonstrates 3 small nonshadowing 4 mm polyps in the gallbladder wall. No sludge or stone seen. No pericholecystic fluid is observed. There is increased echogenicity throughout the liver consistent with fatty infiltration. There is a 0.9 cm hyperechoic area which may be hemangioma. No other focal liver lesion is seen. No intrahepatic bile duct dilation is observed. Common bile duct is normal measuring 0.3 cm in greatest diameter. Limited views of pancreas show no abnormality. There is no evidence of ascites or right renal abnormality. The right kidney measures 11.2 x 6.0 x 5.0 cm.. IMPRESSION: Evidence of fatty infiltration of the liver. 0.9 cm probable benign hemangioma. Small gallbladder wall polyps. No stone or sludge seen.. <Electronically signed by Clayton Chu > 05/13/20 [id number]
[2020-05-13] MEDS ORDERED: CIPR-249 PO (13:30)
[2020-05-13] MEDS ORDERED: ONDA4TAB6 PO (13:30)
[2020-05-13] MEDS ORDERED: FLAG500T PO (13:30)
[2020-05-13 13:52] VITALS: BP 135/91
--- NOTE | 2020-05-15 07:56 | ECGEPIP ---
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
== END 2020-05-13 13:55 | disposition home or self-care (01) ==
LOC: M ED 09:23
DX: K80.50 Calculus of bile duct without cholangitis or cholecystitis without obstruction (principal); I10 Essential (primary) hypertension; E78.5 Hyperlipidemia, unspecified; E06.3 Autoimmune thyroiditis; K21.9 Gastro-esophageal reflux disease without esophagitis; Z79.899 Other long term (current) drug therapy
CPT/HCPCS: 71045; 71275; 74177; 76705; 80048; 80076; 81001; 82150; 82550; 82553; 83605; 83690; 84439; 84443; 84484; 85025; 85610; 85730; 86850; 86900; 86901; 93005; 93041; 94760; 96361; 96374; 99284; J1170; Q9967

== ENCOUNTER → 2020-08-07 | Outpatient (CLI) | payer OTHER ==
[~2020-08-07] MED LIST changes: +CIPR-249 PO; +FLAG500T PO; +ONDA4TAB6 PO
[2020-08-07 08:01] LABS: BASO % 0.5 % (0.0-1.0); EOS # 0.2 10^3/uL (0.0-0.5); EOS % 3.1 % (0.0-3.0); HEMATOCRIT 44.9 % (42.0-52.0); HEMOGLOBIN 15.4 g/dl (13.5-17.5); LYMPH # 2.2 10^3/uL (1.5-5.0); LYMPH % 39.5 % (24.0-44.0); MEAN CORPUSCULAR HEMOGLOBIN 29.7 pg (27.0-33.0); MEAN CORPUSCULAR HGB CONC 34.3 g/dl (32.0-36.5); MEAN CORPUSCULAR VOLUME 86.7 fl (80.0-96.0); MONO # 0.4 10^3/uL (0.0-0.8); MONO % 7.6 % (2.0-8.0); NEUTROPHILS # 2.7 10^3/uL (1.5-8.5); NEUTROPHILS % 49.1 % (36.0-66.0); PLATELET COUNT, AUTOMATED 181 10^3/uL (150-450); RED BLOOD COUNT 5.18 10^6/uL (4.30-6.10); WHITE BLOOD COUNT 5.5 10^3/uL (4.0-10.0)
[2020-08-07 08:29] LABS: ALBUMIN 4.5 GM/DL (3.2-5.2); ALT/SGPT 63 U/L (12-78); BILIRUBIN,TOTAL 0.8 MG/DL (0.2-1.0); BLOOD UREA NITROGEN 32 MG/DL (7-18); CALCIUM LEVEL 8.8 MG/DL (8.5-10.1); CARBON DIOXIDE LEVEL 28 MEQ/L (21-32); CHLORIDE LEVEL 108 MEQ/L (98-107); CREATININE FOR GFR 1.14 MG/DL (0.70-1.30); FREE T4 0.97 NG/DL (0.76-1.46); GLOMERULAR FILTRATION RATE > 60.0 (>56); GLUCOSE, FASTING 92 MG/DL (70-100); POTASSIUM SERUM 4.5 MEQ/L (3.5-5.1); SODIUM LEVEL 142 MEQ/L (136-145); TOTAL PROTEIN 6.8 GM/DL (6.4-8.2)
[2020-08-08 11:00] LABS: TOTAL 25(OH) VITAMIN D 55.1 NG/ML (30.0-100.0)
== END ==
LOC: M LAB 07:32
PROVIDERS: ATTEND Physician Assistant
DX: E29.1 Testicular hypofunction (principal)

== ENCOUNTER → 2020-09-26 | Outpatient (CLI) | payer OTHER ==
[~2020-09-26] MED LIST changes: +ERGO500029; +OMEP40CA4 PO; -OMEP40CA97 PO; -VITA50005
--- NOTE | 2020-09-26 11:00 | REP ---
INDICATION: RUQ PAIN. COMPARISON: Abdomen/pelvis CT dated 05/13/2020 and gallbladder ultrasound dated 05/13/2020. TECHNIQUE/RADIOTRACER AND DOSE: Radionuclide biliary scan and radionuclide gallbladder ejection fraction. FINDINGS: Biliary scan: The images are performed at 5 minutes intervals for up to 1 hour after intravenous infusion of mebrofenin labeled with technetium 99 M. Gallbladder ejection fraction: Additional imaging is performed at 2 minute intervals for 1 hour upon completion of the biliary scan after having the patient ingest 8 oz of Ensure Enlive. IMPRESSION: Biliary scan: There is gallbladder radial labeling at 15 minutes. There is a [place] washout. Biliary to bowel radiolabeling is identified at 50 minutes. Radionuclide biliary scan: At 60 minutes the gallbladder ejection fraction is 19%. Normal ejection fraction is greater than 35%. There is a decreased gallbladder ejection fraction. <Electronically signed by Franck Madden > 09/26/20 [id number]
== END ==
LOC: M RAD 08:05
PROVIDERS: ATTEND Surgery
DX: R10.11 Right upper quadrant pain (principal)
CPT/HCPCS: 78227; A9537